=== PATIENT | female | born 2000 | race African-American/Black ===

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

== ENCOUNTER 2019-11-10 12:22 | Inpatient (IN) | payer OTHER ==
[~2019-11-10] VITALS: Ht 157.5 cm; Wt 56.8 kg
[2019-11-10 13:26] LABS: HEMATOCRIT 40.7 % (36.0-47.0); HEMOGLOBIN 13.7 g/dl (12.0-15.5); MEAN CORPUSCULAR HEMOGLOBIN 31.6 pg (27.0-33.0); MEAN CORPUSCULAR HGB CONC 33.7 g/dl (32.0-36.5); PLATELET COUNT, AUTOMATED 295 10^3/uL (150-450); RED BLOOD COUNT 4.33 10^6/uL (4.00-5.40); WHITE BLOOD COUNT 8.7 10^3/uL (4.0-10.0)
[2019-11-10 13:48] LABS: AMPHETAMINES LEVEL URINE NEGATIVE (NEGATIVE); BARBITURATES URINE NEGATIVE (NEGATIVE); BENZODIAZEPINES URINE NEGATIVE (NEGATIVE); CANNABINOIDS URINE POSITIVE (NEGATIVE); COCAINE METABOLITE URINE NEGATIVE (NEGATIVE); METHADONE URINE NEGATIVE (NEGATIVE); OPIATES URINE NEGATIVE (NEGATIVE); PHENCYCLIDINE URINE NEGATIVE (NEGATIVE)
[2019-11-10 13:51] LABS: HCG, SERUM QUALITATIVE NEGATIVE (NEGATIVE)
[2019-11-10 13:55] LABS: ACETAMINOPHEN LEVEL < 2.0 UG/ML (10.0-30.0); ALT/SGPT 25 U/L (12-78); BILIRUBIN,DIRECT 0.2 MG/DL (0.0-0.2); BILIRUBIN,TOTAL 0.5 MG/DL (0.2-1.0); BLOOD UREA NITROGEN 6 MG/DL (7-18); CARBON DIOXIDE LEVEL 26 MEQ/L (21-32); CHLORIDE LEVEL 105 MEQ/L (98-107); CREATININE FOR GFR 0.89 MG/DL (0.55-1.30); ETHYL ALCOHOL (ETHANOL) < 0.003 % (0.000-0.010); GLOMERULAR FILTRATION RATE > 60.0 (>60); GLUCOSE, FASTING 95 MG/DL (70-100); POTASSIUM SERUM 3.5 MEQ/L (3.5-5.1); SALICYLATE LEVEL < 1.7 MG/DL (5.0-30.0); SODIUM LEVEL 138 MEQ/L (136-145); TOTAL PROTEIN 8.3 GM/DL (6.4-8.2)
[2019-11-10] MEDS ORDERED: OLANZapine 10 MG TAB PO ONE (14:45)
[2019-11-10] MEDS ORDERED: LORazepam 2 MG TAB PO ONE (14:45)
[2019-11-10] MEDS ORDERED: ACETAMINOPHEN TAB 650MG DOSE (2X325MG) PO PRN (15:00)
[2019-11-10] MEDS ORDERED: MAALOX 30 ML SUSP *UDC PO PRN (15:00)
[2019-11-10] MEDS ORDERED: MOM 30ML SUSPENSION UDC PO PRN (15:00)
[2019-11-10] MEDS ORDERED: OLANZapine ORAL DISINTEGRATING TAB 5MG PO PRN (15:00)
[2019-11-11 06:23] VITALS: BP 136/91
--- NOTE | 2019-11-11 14:04 | HPEPDOC ---
[facility] Medical History & Physical Date of Admission Nov 11, 2019 Date of Service: Nov 11, 2019 History and Physical CHIEF COMPLAINT: Admitted to inpatient mental health unit for unspecified psychosis HISTORY OF PRESENT ILLNESS: 19-year-old female with reportedly no past medical history, was admitted to inpatient mental health unit yesterday for unspecified psychosis. Patient is very emotional and hysterical during my interview, crying throughout most of it. She reports feeling overwhelmed for the past few days, unable to tell me why or what brought this up. She denies any previous medical or psychiatric history, not on any medications at this time. She denies any shortness of breath, chest pain, nausea, vomiting, abdominal pain, diarrhea or constipation. 10 point review of systems negative except for above PAST MEDICAL HISTORY: 1. None. PAST SURGICAL HISTORY: 1. None. SOCIAL HISTORY: Previous smoker, currently vapes Social alcohol use. Smokes marijuana FAMILY HISTORY: Positive for heart disease ALLERGIES: Please see below. HOME MEDICATIONS: Please see below. PHYSICAL EXAMINATION: VITAL SIGNS: Please see below. GENERAL: No distress HEENT: Normocephalic, atraumatic, moist mucous membranes NECK: Supple CARDIOVASCULAR EXAMINATION: S1, S2, no murmurs RESPIRATORY EXAMINATION: Clear to auscultation, no wheezing ABDOMINAL EXAMINATION: Soft, nontender, nondistended, positive bowel sounds EXTREMITIES: Range of motion intact SKIN: No rash NEUROLOGICAL EXAMINATION: Alert and oriented 3, no focal deficits PSYCHIATRIC EXAMINATION: Calm and cooperative LABORATORY DATA: See below. MICROBIOLOGY: Please see below. ASSESSMENT: 19-year-old female with no significant past medical history admitted to inpatient mental health unit for unspecified psychosis psychosis. PLAN: 1. Unspecified psychosis. Management as per primary team Patient has no active medical issues at this time, please reconsult is needed. Vital Signs Vital Signs Date Time Temp Pulse Resp B/P (MAP) Pulse Ox O2 Delivery O2 Flow Rate FiO2 11/11/19 08:33 Room Air 11/11/19 06:23 98.6 102 18 136/91 (106) 11/10/19 15:09 99 Home Medications No Active Prescriptions or Reported Meds Allergies Coded Allergies: No Known Allergies (Unverified , 12/18/16) A-FIB/CHADSVASC A-FIB History Current/History of A-Fib/PAF?: No CHUNG NICHOLSON MD Nov 11, 2019 14:04
[2019-11-11 15:40] VITALS: BP 140/76
[2019-11-11] MEDS ORDERED: PILL CUTTER 1 EACH XX PRN (16:45)
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
[2019-11-12] MEDS: LORazepam 1 MG TAB PO PRN ×2 (00:45→22:48)
[2019-11-12] MEDS: traZODone 50 MG TAB PO PRN ×2 (00:45→22:48)
[2019-11-12 06:32] VITALS: BP 132/68
--- NOTE | 2019-11-12 12:43 | MHIPNPDOC ---
[facility] Progress Note Progress Note DATE OF SERVICE: 11/12/19 HISTORY: HISTORY OF PRESENT ILLNESS: As per ED report: " Dr. Angulo at [facility] sent patient here by EMS after seeing her today. Upon arrival with EMS, patient. Per review of Dr. Angulo's notes, patient saw Dr. Salazar (PCP) this morning as well. She revealed feeling very depressed recently, with SI & occasional plans. She reported a suicide attempt 6 months ago by hanging. At the same time she was describing sx of depression, she also relating sx associated with manic. This includes insomnia, grandiose thinking & general behavior that was described as, "Very manicky to calm". These notes also reflected concerns from patient's mother, with report that patient has been in decline x 2 years, with depressed mood, self-isolating behavior, not sleeping & has been self-medicating with CBD. Her condition has reportedly deteriorated considerably over the last 3 days, with labile mood & odd behaviors such as urinating & "soiling" furniture". Then, the note says: "Patient was able to answer some simple questions appropriately, such as why she was here & where she came from. She stated that she was here because she 'hasn't been herself for a few days'. When asked to elaborate, she said that she's been urinating & falling asleep in inapropriate places. When other historical questions were posed, such as her mental health hx, she appeared confused & provided answers that were loose and unrelated. At times, she was very slow to answer. Other times she would answer quickly, then seem to be confused and provide an answer that was completely contradictory. On direct query, patient confirmed that she's been depressed & having thoughts of suicide. At times patient smiles inappropriately & has repeatedly removed her clothing for no obvious reason." VITAL SIGNS: See below. NEW TEST RESULTS: See below CURRENT MEDICATIONS: See below. MENTAL STATUS EXAMINATION: Patient is a 19 year old female, who is alert, dressed in a hospital clothes. Speech: Is less rapid, normal tone and volume. Less circumstantial Language skills are intact Thought processes including: She is still derailed, circumstantial, tangential Thought content: Depressive thoughts, anxious, cognitive distortions Description of associations: loose Description of abnormal or psychotic thoughts: She denies TAV hallucinations today, she denies paranoid thoughts, denies bizarre delusions, denies SI/HI Judgment: Poor Insight: Poor Orientation: x 3 Recent and remote memory: Intact Attention span and concentration: less distractible than yesterday Language: adequate Fund of knowledge: average Mood: "I'm kind of overwhelmed" Affect: labile, tearful, anxious. DIAGNOSES: 1. Bipolar Disorder,mixed 2. PTSD 3. Substance abuse ASSESSMENT: She is still very labile, she is tearful, she was walking into other peoples's rooms, she was placed on a 1:1. I will increase her medications ( 5 mgs. PO BID) MANAGEMENT PLAN: Increase Abilify to 5 mgs PO BID, discontinue 1:1 observation TIME SPENT: 20 minutes. Vital Signs Vital Signs Date Time Temp Pulse Resp B/P (MAP) Pulse Ox O2 Delivery O2 Flow Rate FiO2 11/12/19 07:56 Room Air 11/12/19 06:32 98.7 82 14 132/68 (89) 11/10/19 15:09 99 Current Medications Current Medications Medications (Trade) Dose Ordered Sig/Jovani Route PRN Reason Start Time Stop Time Status Last Admin Dose Admin Acetaminophen (Tylenol Tab) 650 mg Q6HP PRN PO HEADACHE or DISCOMFORT 11/10/19 15:00 Al Hydrox/Mg Hydrox/Simethicone (Mylanta) 30 ml Q4HP PRN PO HEARTBURN/INDIGESTION 11/10/19 15:00 Aripiprazole (AbiLIFY) 2.5 mg BID PO 11/11/19 21:00 Cancel Aripiprazole (AbiLIFY) 5 mg QHS PO 11/11/19 21:00 11/11/19 20:33 Lorazepam (Ativan) 2 mg Q4HP PRN PO ANXIETY/AGITATION 11/10/19 15:00 11/12/19 00:45 Magnesium Hydroxide (Milk Of Magnesia) 30 ml DAILYPRN PRN PO CONSTIPATION 11/10/19 15:00 Olanzapine (ZyPREXA ZYDIS) 10 mg Q4HP PRN PO aa 11/10/19 15:00 Trazodone HCl (Desyrel) 50 mg QHSP PRN PO INSOMNIA 11/10/19 15:00 11/12/19 00:45 Allergies Coded Allergies: No Known Allergies (Unverified , 12/18/16) MARY JO YADAV MD Nov 12, 2019 10:20
[2019-11-12 18:16] VITALS: BP 124/86
[2019-11-13 06:26] VITALS: BP 119/71
--- NOTE | 2019-11-13 09:33 | MHIPNPDOC ---
[facility] Progress Note Progress Note DATE OF SERVICE: 11/13/19 HISTORY: Per Dr. Foster: "As per ED report: " Dr. Angulo at [facility] sent patient here by EMS after seeing her today. Upon arrival with EMS, patient. Per review of Dr. Angulo's notes, patient saw Dr. Salazar (PCP) this morning as well. She revealed feeling very depressed recently, with SI & occasional plans. She reported a suicide attempt 6 months ago by hanging. At the same time she was describing sx of depression, she also relating sx associated with manic. This includes insomnia, grandiose thinking & general behavior that was described as, "Very manicky to calm". These notes also reflected concerns from patient's mother, with report that patient has been in decline x 2 years, with depressed mood, self-isolating behavior, not sleeping & has been self-medicating with CBD. Her condition has reportedly deteriorated considerably over the last 3 days, with labile mood & odd behaviors such as urinating & "soiling" furniture". Then, the note says: "Patient was able to answer some simple questions appropriately, such as why she was here & where she came from. She stated that she was here because she 'hasn't been herself for a few days'. When asked to elaborate, she said that she's been urinating & falling asleep in inapropriate places. When other historical questions were posed, such as her mental health hx, she appeared confused & provided answers that were loose and unrelated. At times, she was very slow to answer. Other times she would answer quickly, then seem to be confused and provide an answer that was completely contradictory. On direct query, patient confirmed that she's been depressed & having thoughts of suicide. At times patient smiles inappropriately & has repeatedly removed her clothing for no obvious reason." VITAL SIGNS: See below. NEW TEST RESULTS: See below CURRENT MEDICATIONS: See below. MENTAL STATUS EXAMINATION: Patient is a 19 year old female, who is alert, dressed in a hospital clothes. Speech: Is lrage rate, normal tone and volume. Language skills are intact Thought processes including: more linear, logical Thought content: denies SI/HI Description of associations: improving Description of abnormal or psychotic thoughts: She denies TAV hallucinations today, she denies paranoid thoughts, denies bizarre delusions, denies SI/HI Judgment: improving Insight: improving Orientation: x 3 Recent and remote memory: Intact Attention span and concentration: good Language: adequate Fund of knowledge: average Mood: "better" Affect: mildly labile but mostly euthymic DIAGNOSES: 1. Bipolar Disorder,mixed 2. PTSD 3. Substance abuse ASSESSMENT: Pt seen and states that her mood is "better" as her thoughts are more clear and she feels less anxious. Her mood is only mildly labile when discuss her guilt regard "what I was thinking and saying" when she first got here and reassured pt that it isn't her fault as she is sick. States she slept well last night. Feels she is tolerating her abilify and that it's beneficial. She is attending groups and finding them helpful. She denies SI/HI, hallucinations, delusions. Pt feels safe here. MANAGEMENT PLAN: D/c planning tomorrow Abilify to 5 mgs PO BID TIME SPENT: 30 minutes. Vital Signs Vital Signs Date Time Temp Pulse Resp B/P (MAP) Pulse Ox O2 Delivery O2 Flow Rate FiO2 11/13/19 06:26 97.9 92 12 119/71 (87) Room Air 11/10/19 15:09 99 Current Medications Current Medications Medications (Trade) Dose Ordered Sig/Jovani Route PRN Reason Start Time Stop Time Status Last Admin Dose Admin Acetaminophen (Tylenol Tab) 650 mg Q6HP PRN PO HEADACHE or DISCOMFORT 11/10/19 15:00 11/13/19 08:05 Al Hydrox/Mg Hydrox/Simethicone (Mylanta) 30 ml Q4HP PRN PO HEARTBURN/INDIGESTION 11/10/19 15:00 Aripiprazole (AbiLIFY) 2.5 mg BID PO 11/11/19 21:00 Cancel Aripiprazole (AbiLIFY) 5 mg BID PO 11/12/19 09:00 Aripiprazole (AbiLIFY) 5 mg QHS PO 11/11/19 21:00 11/12/19 12:40 DC 11/11/19 20:33 Lorazepam (Ativan) 2 mg Q4HP PRN PO ANXIETY/AGITATION 11/10/19 15:00 11/12/19 22:48 Magnesium Hydroxide (Milk Of Magnesia) 30 ml DAILYPRN PRN PO CONSTIPATION 11/10/19 15:00 Olanzapine (ZyPREXA ZYDIS) 10 mg Q4HP PRN PO aa 11/10/19 15:00 Trazodone HCl (Desyrel) 50 mg QHSP PRN PO INSOMNIA 11/10/19 15:00 11/12/19 22:48 Allergies Coded Allergies: No Known Allergies (Unverified , 12/18/16) LINO MORRIS DO Nov 13, 2019 9:33 am
[2019-11-13] MEDS: LORazepam 1 MG TAB PO PRN (09:48)
[2019-11-13 18:00] VITALS: BP 135/79
[2019-11-13] MEDS: traZODone 50 MG TAB PO PRN (20:07)
[2019-11-14 06:51] VITALS: BP 113/65
[2019-11-14] MEDS ORDERED: ABIL10TA9 PO (08:34)
--- NOTE | 2019-11-14 08:34 | MHDSPDOC ---
[facility] Discharge Summary Discharge Summary DATE OF ADMISSION: Nov 10, 2019 at 2:54 pm DATE OF DISCHARGE: Nov 14, 2019 DISCHARGE DIAGNOSES: 1. Bipolar Disorder,mixed 2. PTSD 3. Substance abuse REASON FOR ADMISSION: Per Dr. Foster: "As per ED report: " Dr. Angulo at [facility] sent patient here by EMS after seeing her today. Upon arrival with EMS, patient. Per review of Dr. Angulo's notes, patient saw Dr. Salazar (PCP) this morning as well. She revealed feeling very depressed recently, with SI & occasional plans. She reported a suicide attempt 6 months ago by hanging. At the same time she was describing sx of depression, she also relating sx associated with manic. This includes insomnia, grandiose thinking & general behavior that was described as, "Very manicky to calm". These notes also reflected concerns from patient's mother, with report that patient has been in decline x 2 years, with depressed mood, self-isolating behavior, not sleeping & has been self-medicating with CBD. Her condition has reportedly deteriorated considerably over the last 3 days, with labile mood & odd behaviors such as urinating & "soiling" furniture". Then, the note says: "Patient was able to answer some simple questions appropriately, such as why she was here & where she came from. She stated that she was here because she 'hasn't been herself for a few days'. When asked to elaborate, she said that she's been urinating & falling asleep in inapropriate places. When other historical ques tions were posed, such as her mental health hx, she appeared confused & provided answers that were loose and unrelated. At times, she was very slow to answer. Other times she would answer quickly, then seem to be confused and provide an answer that was completely contradictory. On direct query, patient confirmed that she's been depressed & having thoughts of suicide. At times patient smiles inappropriately & has repeatedly removed her clothing for no obvious reason." CONSULTANTS INVOLVED: none TREATMENT AND PROGRESS ON THE UNIT :[facility], seen for psychiatric assessment and started on abilfy 5mg daily for bipolar d/o that she tolerated well and appeared beneficial so she was given abilify maintena 400mg im on day of d/c that she tolerated well and felt was beneficial. Her oral abilify was d/c. She was provided trazodone 50mg qhs prn insomnia. Pt found her medications beneficial and tolerated them well. She attended groups daily during her stay. Her symptoms of barrett improved with treatment to now having a euthymic, appropriate mood with linear and logical thoughts. On day of discharge she denied depression, barrett, anxiety, insomnia, SI/HI, hallucinations, delusions. She was discharged home with follow-up at the [facility]. She felt safe for discharge. DISCHARGE ASSESSMENT: Pt seen and states that her mood is "good" and that she's looking forward to going home today. States she's tolerating her abilify well and that it is beneficial to her thoughts and mood as she is able to think more clearly and her mood is more stable. States she slept well last night. She is attending groups and finding them helpful. She denies depression, barrett, anxiety, insomnia, SI/HI, hallucinations, delusions. Pt feels safe to d/c home today MENTAL STATUS EXAMINATION ON DISCHARGE: Patient is a 19 year old female, who is alert, dressed in a hospital clothes. Speech: Is reg rate, normal tone and volume. Language skills are intact Thought processes including: linear, logical Thought content: denies SI/HI Description of associations: appropriate Description of abnormal or psychotic thoughts: She denies TAV hallucinations today, she denies paranoid thoughts, denies bizarre delusions, denies SI/HI Judgment: good Insight: good Orientation: x 3 Recent and remote memory: Intact Attention span and concentration: good Language: adequate Fund of knowledge: average Mood: "good" Affect: congruent, euthymic MEDICATIONS ON DISCHARGE: Abilify maintena 400mg im q4wks PLAN/FOLLOWUP ARRANGEMENTS: D/c home with follow-up at the [facility]. The amount of time spent in the coordination of care for this patient was approximately 30 minutes. Vital Signs/I&Os Vital Signs Date Time Temp Pulse Resp B/P (MAP) Pulse Ox O2 Delivery O2 Flow Rate FiO2 11/14/19 07:04 99.4 11/14/19 06:51 84 12 113/65 (81) 11/13/19 06:26 Room Air 11/10/19 15:09 99 Medications Scheduled Aripiprazole (Abilify Maintena) 400 Mg Suser.syr, 400 MG IM Q4WKS for bipolar d/o, #400 Allergies Coded Allergies: No Known Allergies (Unverified , 12/18/16) LINO MORRIS DO Nov 14, 2019 8:34 am
[2019-11-14] MEDS ORDERED: ABIL1INJ2 IM (09:08)
[2019-11-14] MEDS ORDERED: ARIPiprazole MONOHYDRATE 400 MG INJ (ABILIFY)(J0401) IM ONE (11:00)
== END 2019-11-14 10:56 | disposition home or self-care (01) | DRG 885 ==
LOC: M ED 12:22 → M ED INP 14:54 → M PSY 16:43
PROVIDERS: ADMIT Psychiatry & Neurology Psychiatry; ATTEND Psychiatry & Neurology Psychiatry
DX: F31.60 Bipolar disorder, current episode mixed, unspecified (principal); F43.10 Post-traumatic stress disorder, unspecified

== ENCOUNTER 2020-08-20 00:17 | Inpatient (IN) | payer OTHER ==
[~2020-08-20] VITALS: Ht 157.5 cm; Wt 64.3 kg
[~2020-08-20 00:17] MED LIST: ABIL10TA9 PO; ABIL1INJ2 IM
[2020-08-20] MEDS ORDERED: NS 1,000 ML IV ONE ×5 (00:30→14:00)
[2020-08-20 01:14] LABS: VENOUS PH 7.399 UNITS (7.330-7.430)
[2020-08-20 01:15] LABS: VENOUS BASE EXCESS -0.7 (-2.0-2.0); VENOUS O2 SATURATION 94.4 % (60.0-80.0); VENOUS PARTIAL PRESSURE CO2 39.7 mmHg (38.0-50.0); VENOUS PARTIAL PRESSURE O2 69.4 mmHg (30.0-50.0); VENOUS STANDARD HCO3 23.8 MEQ/L; VENOUS TOTAL CO2 25.2 MEQ/L (24.0-28.0)
[2020-08-20] MEDS ORDERED: OLANZapine ORAL DISINTEGRATING TAB 5MG PO ONE (01:15)
[2020-08-20 01:17] LABS: BASO # 0.1 10^3/uL (0.0-0.2); BASO % 0.4 % (0.0-1.0); EOS % 0.1 % (0.0-3.0); HEMATOCRIT 37.8 % (36.0-47.0); HEMOGLOBIN 12.4 g/dl (12.0-15.5); LYMPH # 1.1 10^3/uL (1.5-5.0); LYMPH % 8.7 % (24.0-44.0); MEAN CORPUSCULAR HEMOGLOBIN 30.4 pg (27.0-33.0); MEAN CORPUSCULAR HGB CONC 32.8 g/dl (32.0-36.5); MEAN CORPUSCULAR VOLUME 92.6 fl (80.0-96.0); MONO % 7.6 % (0.0-5.0); NEUTROPHILS # 10.6 10^3/uL (1.5-8.5); NEUTROPHILS % 82.6 % (36.0-66.0); PLATELET COUNT, AUTOMATED 250 10^3/uL (150-450); RED BLOOD COUNT 4.08 10^6/uL (4.00-5.40); WHITE BLOOD COUNT 12.8 10^3/uL (4.0-10.0)
[2020-08-20 01:39] LABS: HCG, SERUM QUALITATIVE NEGATIVE (NEGATIVE)
[2020-08-20 01:53] LABS: ACETAMINOPHEN LEVEL < 2.0 UG/ML (10.0-30.0); ALBUMIN 4.1 GM/DL (3.2-5.2); ALT/SGPT 37 U/L (12-78); BILIRUBIN,DIRECT 0.2 MG/DL (0.0-0.2); BILIRUBIN,TOTAL 0.6 MG/DL (0.2-1.0); BLOOD UREA NITROGEN 6 MG/DL (7-18); CALCIUM LEVEL 9.2 MG/DL (8.5-10.1); CARBON DIOXIDE LEVEL 27 MEQ/L (21-32); CHLORIDE LEVEL 103 MEQ/L (98-107); CK-MB VALUE MASS 4.6 NG/ML (<3.6); CPK CREATINE PHOSPHOKINASE 819 U/L (26-192); CREATININE FOR GFR 1.06 MG/DL (0.55-1.30); ETHYL ALCOHOL (ETHANOL) < 0.003 % (0.000-0.010); GLOMERULAR FILTRATION RATE > 60.0 (>60); GLUCOSE, FASTING 92 MG/DL (70-100); MB/CK RELATIVE INDEX 0.56 (< OR =4); POTASSIUM SERUM 2.8 MEQ/L (3.5-5.1); SALICYLATE LEVEL < 1.7 MG/DL (5.0-30.0); SODIUM LEVEL 135 MEQ/L (136-145); THYROID STIMULATING HORMONE 0.546 uIU/ML (0.358-3.740); TOTAL PROTEIN 7.9 GM/DL (6.4-8.2); TROPONIN I < 0.02 NG/ML (< 0.10)
[2020-08-20 02:05] LABS: OSMOLALITY SERUM 287 MOSM/KG (275-295)
[2020-08-20] MEDS ORDERED: POTASSIUM CHLORIDE 10 MEQ SR TABLET PO ONE (02:15)
--- NOTE | 2020-08-20 02:23 | REPVR ---
PROCEDURE INFORMATION: Exam: XR Chest, 1 View Exam date and time: 08/20/2020 2:02 AM Age: 19 years old Clinical indication: Altered mental status TECHNIQUE: Imaging protocol: XR of the chest Views: 1 view. COMPARISON: CR CHEST 2 VIEW 01/09/2014 8:03 PM (The report from this study was not available for review at the time of this interpretation.) FINDINGS: Lungs: Unremarkable. No consolidation. No pulmonary edema. Pleural space: Unremarkable. No pleural effusion or pneumothorax is identified. Heart/Mediastinum: Unremarkable. No cardiomegaly. Bones/joints: Unremarkable. IMPRESSION: No acute findings. Electronically signed by: Jc Corley On 08/20/2020 02:24:05 AM
[2020-08-20] MEDS ORDERED: LORazepam 2 MG/ML VIAL As Ordered ONE ×3 (03:09→18:42)
[2020-08-20] MEDS ORDERED: HALOPERIDOL 5MG/ML VIAL (J1630 PER 1) IM ONE (03:15)
[2020-08-20] MEDS ORDERED: diphenhydrAMINE 50MG/ML VIAL (J1200) IM ONE (03:15)
[2020-08-20] MEDS ORDERED: LORazepam 2 MG/ML VIAL IM ONE (03:15)
[2020-08-20 04:49] LABS: AMPHETAMINES LEVEL URINE NEGATIVE (NEGATIVE); BARBITURATES URINE NEGATIVE (NEGATIVE); BENZODIAZEPINES URINE POSITIVE (NEGATIVE); CANNABINOIDS URINE POSITIVE (NEGATIVE); COCAINE METABOLITE URINE NEGATIVE (NEGATIVE); METHADONE URINE NEGATIVE (NEGATIVE); OPIATES URINE NEGATIVE (NEGATIVE); PHENCYCLIDINE URINE NEGATIVE (NEGATIVE)
[2020-08-20 08:46] LABS: BLOOD UREA NITROGEN 5 MG/DL (7-18); CALCIUM LEVEL 8.7 MG/DL (8.5-10.1); CARBON DIOXIDE LEVEL 24 MEQ/L (21-32); CHLORIDE LEVEL 107 MEQ/L (98-107); CREATININE FOR GFR 0.81 MG/DL (0.55-1.30); GLOMERULAR FILTRATION RATE > 60.0 (>60); GLUCOSE, FASTING 88 MG/DL (70-100); POTASSIUM SERUM 3.5 MEQ/L (3.5-5.1); SODIUM LEVEL 139 MEQ/L (136-145)
[2020-08-20] MEDS ORDERED: LORazepam 2 MG/ML VIAL IV STA ×2 (09:23→11:53)
[2020-08-20 10:02] LABS: CK-MB VALUE MASS 4.9 NG/ML (<3.6); CPK CREATINE PHOSPHOKINASE 973 U/L (26-192); TROPONIN I < 0.02 NG/ML (< 0.10)
[2020-08-20 13:20] LABS: CK-MB VALUE MASS 5.3 NG/ML (<3.6); CPK CREATINE PHOSPHOKINASE 1211 U/L (26-192); MB/CK RELATIVE INDEX 0.44 (< OR =4); TROPONIN I < 0.02 NG/ML (< 0.10)
[2020-08-20] MEDS ORDERED: diphenhydrAMINE 50MG/ML VIAL (J1200) IM PRN (14:00)
[2020-08-20] MEDS ORDERED: HALOPERIDOL 5MG/ML VIAL (J1630 PER 1) IM PRN (14:00)
[2020-08-20] MEDS ORDERED: ARIP1TAB PO (14:10)
[2020-08-20 14:35] LABS: RSV AMPLIFICATION NEGATIVE (NEGATIVE)
[2020-08-20] MEDS ORDERED: DEXTROSE 50% 50 ML SYRINGE IV PRN (15:30)
[2020-08-20] MEDS ORDERED: GLUCOSE 4GM CHEW TABLET PO PRN (15:30)
[2020-08-20] MEDS ORDERED: HALOPERIDOL 5MG/ML VIAL (J1630 PER 1) IV ONE (15:30)
[2020-08-20] MEDS ORDERED: GLUCAGON INJ 1MG VIAL SC PRN (15:30)
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
[2020-08-20 17:27] VITALS: BP 128/85
[2020-08-20] MEDS ORDERED: flumazeniL 0.5 MG/5 ML VIAL IV PRN (17:30)
[2020-08-20] MEDS ORDERED: LORazepam 2 MG/ML VIAL IV PRN (17:30)
--- NOTE | 2020-08-20 17:35 | ECGEPIP ---
[facility] - ED Test Date: 2020-08-20 Pat Name: MAEGAN PEREZ Department: Room: - Gender: Female [employer]: hannah : 2000 Requested By: XIMENA Dooley Order Number: [id number] Reading MD: Kelly Brambila Measurements Intervals [place] Rate: 94 P: 67 KS: 132 QRS: 55 QRSD: 85 T: -3 QT: 358 QTc: 448 Interpretive Statements SINUS RHYTHM NONSPECIFIC ST & T-WAVE ABNORMALITY No prior Electronically Signed on 08-20-2020 17:34:53 EST by Kelly Brambila
[2020-08-20] MEDS: NS 1,000 ML IV SCH ×2 (17:48→20:06)
[2020-08-20] MEDS: diazePAM 5MG TABLET PO PRN ×2 (18:18→21:49)
--- NOTE | 2020-08-20 20:34 | MHIPNPDOC ---
[facility] Progress Note Progress Note DATE OF SERVICE: 08/20/20 HISTORY: 19 year old female who was admitted to the Medical floor for severe rhabdomyolysis after being combative at the ED. She apparently attempted to run away from the emergency, had to be restrained, received, Haldol, Ativan and Benadryl. By the time this technical writer and editor was consulted, she had already received 5 mgs of Haldol, several doses of Ativan plus Zyprexa Zydis. Nothing was helping to calm her down. This afternoon Dr. Lopez called this technical writer and editor for a consult on this patient. VITAL SIGNS: See below. NEW TEST RESULTS: See below CURRENT MEDICATIONS: See below. MENTAL STATUS EXAMINATION: Patient is a 19-year old female, who is alert, dressed in hospital gown, disheveled.. Speech: Is tangential, circumstantial, clear, spontaneous, normal in tone and volume, not rapid at this time. Disorganized Thought processes including: Disorganized. Derailed Thought content: She exhibits bizarre delusions, paranoid thoughts Abstract reasoning, and computation: not assessed at this time, patient is psychotic. Description of associations: loose. Description of abnormal or psychotic thoughts: bizarere and paranoid behavior, paranoid delusions. Judgment: poor Insight: poor. Orientation: not oriented to time and place at this time Recent and remote memory: unable to assess at this time, patient is psychotic. Attention span and concentration: poor. Fund of knowledge: unable to assess, patient is psychotic Mood: labile. Affect: congruent with mood. DIAGNOSES: 1. Unspecified psychotic disorder 2. Substance induced psychotic disorder 3. Bipolar disorder by history ASSESSMENT: As I entered the room and started talking to her she asked me if I was Dr. Chowdary. I said I wasn't Dr. Chowdary and I introduced myself. almost immediately she got up from bed and kept looking at the door. I asked her twice to please go back to bed but she said she preferred to be like that, standing up. She started talking to me and she didn't make any sense. She told me she was taking Abilify and started complaining about medication side effects, saying this medication had made her develop OCD symptoms and to get worse. Then she started saying that she was taking fragments of the tablet and immediately she switched to a different topic where she was talking about some friends taking small doses of a medication, saying that they were using drugs, mentioned marijuana and she said that she didn't understand why this was bad for her. She kept on talking in this nonsensical way. She is psychotic and probably will attempt to run away from her room. She, unfortunately presents with Rhabdomyolysis and elevated CK because she needs antipsychotic medication. This technical writer and editor spoke with Dr. Lopez and she suggested to have her sedated using benzodiazepines since at this time is not safe to use antipsychotic medication ( it would make her CK more elevated). The patient has a urine tox positive for benzodiazepines and marijuana. She has ah/o drug abuse and this is probably the result of one of those drugs ( nathen?). Once her CK starts to decrease, she will benefit from Zyprexa Zydis 5 mgs PO TID and once medically stable, she will be re evaluated to assess possible tansfe to [facility]: Please read above TIME SPENT: 15 minutes. Vital Signs Vital Signs Date Time Temp Pulse Resp B/P (MAP) Pulse Ox O2 Delivery O2 Flow Rate FiO2 08/20/20 17:27 98.7 96 17 128/85 (99) Room Air 08/20/20 15:17 100 Laboratory Data 24H Labs Laboratory Tests 2 08/20/20 01:06: Immature Granulocyte % (Auto) 0.6, Neutrophils (%) (Auto) 82.6H, Lymphocytes (%) (Auto) 8.7L, Monocytes (%) (Auto) 7.6H, Eosinophils (%) (Auto) 0.1, Basophils (%) (Auto) 0.4, Neutrophils # (Auto) 10.6H, Lymphocytes # (Auto) 1.1L, Monocytes # (Auto) 1.0H, Eosinophils # (Auto) 0.0, Basophils # (Auto) 0.1, Nucleated Red Blood Cells % (auto) 0.0, Blood Gas Bicarbonate Standard 23.8, Venous Blood pH 7.399, Venous Blood Partial Pressure CO2 39.7, Venous Blood Partial Pressure O2 69.4H, Venous Blood Total Carbon Dioxide 25.2, Venous Blood HCO3 24.0, Venous Blood Oxygen Saturation 94.4H, Venous Blood Base Excess -0.7, Anion Gap 5L, Glomerular Filtration Rate > 60.0, Osmolality 287, Lactic Acid Level 1.9, Calcium Level 9.2, Total Bilirubin 0.6, Direct Bilirubin 0.2, Aspartate Amino Transf (AST/SGOT) 40H, Alanine Aminotransferase (ALT/SGPT) 37, Alkaline Phosphatase 61, Total Creatine Kinase 819H, Creatine Kinase MB 4.6H, Creatine Kinase MB Relative Index 0.56, Troponin I < 0.02, Total Protein 7.9, Albumin 4.1, Albumin/Globulin Ratio 1.1L, Thyroid Stimulating Hormone (TSH) 0.546, Human Chorionic Gonadotropin, Qual NEGATIVE, Salicylates Level < 1.7L, Acetaminophen Level < 2.0L, Ethyl Alcohol Level < 0.003 08/20/20 04:13: Urine Color YELLOW, Urine Appearance CLEAR, Urine pH 7.0, Urine Specific [place] 1.003, Urine Protein NEGATIVE, Urine Glucose (UA) NEGATIVE, Urine Ketones TRACEH, Urine Blood NEGATIVE, Urine Nitrite NEGATIVE, Urine Bilirubin NEGATIVE, Urine Urobilinogen 0.2, Urine Leukocyte Esterase NEGATIVE, Urine WBC (Auto) 1, Urine RBC (Auto) 0, Urine Hyaline Casts (Auto) 0, Urine Bacteria (Auto) NEGATIVE, Urine Squamous Epithelial Cells 0, Urine Sperm (Auto) , Urine Opiates Screen NEGATIVE, Urine Methadone Screen NEGATIVE, Urine Barbiturates Screen NEGATIVE, Urine Phencyclidine Screen NEGATIVE, Urine Amphetamines Screen NEGATIVE, Urine Benzodiazepines Screen POSITIVEH, Urine Cocaine Metabolite Screen NEGATIVE, Urine Cannabinoids Screen POSITIVEH 08/20/20 07:44: Anion Gap 8, Glomerular Filtration Rate > 60.0, Calcium Level 8.7 08/20/20 08:45: Total Creatine Kinase 973H, Creatine Kinase MB 4.9H, Creatine Kinase MB Relative Index 0.50, Troponin I < 0.02 08/20/20 12:22: Total Creatine Kinase 1211H, Creatine Kinase MB 5.3H, Creatine Kinase MB Relative Index 0.44, Troponin I < 0.02 08/20/20 13:31: Coronavirus (COVID-19)(PCR) NEGATIVE, Influenza Type A (RT-PCR) NEGATIVE, Influenza Type B (RT-PCR) NEGATIVE, Respiratory Syncytial Virus (PCR) NEGATIVE CBC/BMP Laboratory Tests 08/20/20 01:06 08/20/20 07:44 Current Medications Current Medications Medications (Trade) Dose Ordered Sig/Jovani Route PRN Reason Start Time Stop Time Status Last Admin Dose Admin Dextrose (Dextrose 50%) 25 ml ASDIRECTED PRN IV SEE LABEL COMMENTS 08/20/20 15:30 Diazepam (Valium) 5 mg Q6HP PRN PO restlessness 08/20/20 17:30 Diphenhydramine HCl (Benadryl) 50 mg Q6HP PRN IM AGITATION 08/20/20 14:00 08/20/20 17:28 DC Flumazenil (Romazicon) 0.1 mg Q3MP PRN IV RR<12 08/20/20 17:30 Glucagon (Glucagon) 1 mg ASDIRECTED PRN SC SEE LABEL COMMENTS 08/20/20 15:30 Glucose (Glucose) 16 GM ASDIRECTED PRN PO SEE LABEL COMMENTS 08/20/20 15:30 Haloperidol (Haldol) 5 mg Q6HP PRN IM AGITATION 08/20/20 14:00 08/20/20 17:28 DC Home Med (Med Rec Complete!) ASDIRECTED XX 08/20/20 14:15 08/20/20 14:13 DC Lorazepam (Ativan) 1 mg STAT STAT IV 08/20/20 09:23 08/20/20 09:27 DC 08/20/20 09:28 Lorazepam (Ativan) 2 mg Q4HP PRN IV AGITATION 08/20/20 17:30 08/20/20 18:46 Lorazepam (Ativan) 2 mg STAT STAT IV 08/20/20 11:53 08/20/20 11:54 DC 08/20/20 12:04 Sodium Chloride 1,000 ml @ 200 mls/hr Q5H IV 08/20/20 15:00 08/20/20 17:48 Allergies Coded Allergies: No Known Allergies (Unverified , 12/18/16) MARY JO YADAV MD Aug 20, 2020 20:34
[2020-08-20 22:00] VITALS: BP 116/64
[2020-08-21] MEDS: NS 1,000 ML IV SCH ×7 (01:00→23:30)
[2020-08-21 06:00] VITALS: BP 134/87
[2020-08-21] MEDS ORDERED: diazePAM 10MG/2ML SYRINGE (J3360 PER 5MG) IV ONE (07:45)
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
[2020-08-21 10:16] LABS: MEAN CORPUSCULAR HEMOGLOBIN 31.3 pg (27.0-33.0); MEAN CORPUSCULAR HGB CONC 32.4 g/dl (32.0-36.5); MEAN CORPUSCULAR VOLUME 96.9 fl (80.0-96.0); PLATELET COUNT, AUTOMATED 205 10^3/uL (150-450); RED BLOOD COUNT 3.51 10^6/uL (4.00-5.40); WHITE BLOOD COUNT 8.2 10^3/uL (4.0-10.0)
[2020-08-21] MEDS: diazePAM 5MG TABLET PO PRN ×2 (10:24→17:31)
[2020-08-21 10:56] LABS: BLOOD UREA NITROGEN 5 MG/DL (7-18); CARBON DIOXIDE LEVEL 23 MEQ/L (21-32); CHLORIDE LEVEL 115 MEQ/L (98-107); CPK CREATINE PHOSPHOKINASE 1724 U/L (26-192); CREATININE FOR GFR 0.71 MG/DL (0.55-1.30); GLOMERULAR FILTRATION RATE > 60.0 (>60); GLUCOSE, FASTING 87 MG/DL (70-100); POTASSIUM SERUM 3.4 MEQ/L (3.5-5.1); SODIUM LEVEL 144 MEQ/L (136-145)
[2020-08-21] MEDS ORDERED: POTASSIUM CHLORIDE 10 MEQ SR TABLET PO ONE (11:15)
[2020-08-21 14:00] VITALS: BP 134/88
[2020-08-21] MEDS ORDERED: LORazepam 2 MG/ML VIAL IM STA (20:53)
[2020-08-21] MEDS ORDERED: LORazepam 2 MG TAB PO PRN (21:15)
[2020-08-21 22:00] VITALS: BP 134/87
[2020-08-22] MEDS: diazePAM 5MG TABLET PO PRN ×3 (02:26→20:51)
[2020-08-22] MEDS: NS 1,000 ML IV SCH ×6 (04:30→19:30)
[2020-08-22 06:00] VITALS: BP 133/86
[2020-08-22 07:11] LABS: BLOOD UREA NITROGEN 2 MG/DL (7-18); CARBON DIOXIDE LEVEL 25 MEQ/L (21-32); CHLORIDE LEVEL 112 MEQ/L (98-107); GLOMERULAR FILTRATION RATE > 60.0 (>60); GLUCOSE, FASTING 91 MG/DL (70-100); POTASSIUM SERUM 3.3 MEQ/L (3.5-5.1); SODIUM LEVEL 143 MEQ/L (136-145)
[2020-08-22 07:12] LABS: CPK CREATINE PHOSPHOKINASE 1241 U/L (26-192)
[2020-08-22] MEDS ORDERED: POTASSIUM CHLORIDE 10 MEQ SR TABLET PO ONE (07:45)
[2020-08-22] MEDS ORDERED: diazePAM 5MG TABLET PO ONE (10:15)
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
[2020-08-22] MEDS ORDERED: LORazepam 2 MG/ML VIAL As Ordered ONE (12:38)
[2020-08-22] MEDS: LORazepam 2 MG/ML VIAL IV PRN (12:41)
[2020-08-22 22:00] VITALS: BP 140/96
[2020-08-23] MEDS: NS 1,000 ML IV SCH ×7 (00:30→22:03)
[2020-08-23] MEDS: LORazepam 2 MG/ML VIAL IV PRN (03:58)
[2020-08-23] MEDS: diazePAM 5MG TABLET PO PRN (04:53)
[2020-08-23 06:00] VITALS: BP 140/95
[2020-08-23] MEDS ORDERED: diazePAM 10MG/2ML SYRINGE (J3360 PER 5MG) IV PRN (07:45)
[2020-08-23] MEDS ORDERED: diazePAM 5MG TABLET PO ONE (08:00)
[2020-08-23] MEDS ORDERED: ARIPiprazole 2 MG TAB PO ONE (09:00)
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
[2020-08-23 14:00] VITALS: BP 143/93
--- NOTE | 2020-08-23 18:58 | MHIPNPDOC ---
[facility] Progress Note Progress Note DATE OF SERVICE: 08/23/20 HISTORY: 19 year old female who was admitted to the Medical floor for severe rhabdomyolysis after being combative at the ED. She apparently attempted to run away from the emergency, had to be restrained, received, Haldol, Ativan and Benadryl. By the time this comic writer was consulted, she had already received 5 mgs of Haldol, several doses of Ativan plus Zyprexa Zydis. Nothing was helping to calm her down. This afternoon Dr. Lopez called this comic writer for a consult on this patient. VITAL SIGNS: See below. NEW TEST RESULTS: See below CURRENT MEDICATIONS: See below. MENTAL STATUS EXAMINATION: Patient is a 19-year old female, who is alert, dressed in hospital gown, disheveled.. Speech: Disorganized, circumstantial and tangential. Speech is normal in r/t/v Thought processes including: Disorganized, psychotic. Thought content: She is delusional, she says she gets super rey when they draw blood from her, she has bizarre thoughts regarding medications Abstract reasoning, and computation: not assessed at this time, patient is psychotic. Description of associations: loose. Description of abnormal or psychotic thoughts: bizarre delusions, she doesn't seem to be responding to internal stimuli at this time but she is probably hallucinating Judgment: poor Insight: poor. Orientation: not oriented to time and place at this time Recent and remote memory: She is not able to remember that she talked to me or the conversation that I had with her when I went to see her. Attention span and concentration: poor. Fund of knowledge: unable to assess, patient is psychotic Mood: labile, irritable Affect: congruent with mood. DIAGNOSES: 1. Unspecified psychotic disorder 2. Substance induced psychotic disorder 3. Bipolar disorder by history ASSESSMENT: The patient is psychotic but unfortunately at this time she is not able to make decisions regarding her health because of that. She told me she wanted her psychiatric medications but when I told her I only could give her medications if she accepted her IV fluids and allowed the lab to draw blood from her. At that point she told she didn't mind allowing the blood to be drawn because "that makes me have super rey, makes me strong, I gave them a lot of blood yesterday". Regarding medications she says she wants medical marijuana and when I told her I can't prescribe her that, she said I could probably refer her and when I said I couldn't do that, got upset with me. If the patient would be medically stable I would transfer to the Inpatient Mental Health Unit but she is not medically stable at this time and unfortunately she can't receive antipsychotic medications because these medicines can cause elevated CK levels and rhabdomyolysis. This comic writer is aware that she has not allowed the staff to draw blood from her in approximately 48 hours and she hasn't allowed IV fluids either. Without IV fluids her CK levels are probably high. If she would allow the staff to have blood drawn for CK levels and a new chemistry and if those levles would fal within the normal range, I would be able to transfer her to [facility] but if those levels are abnormal, I can't transfer her or give her antipsychotic medications. I have discussed the case with Dr. Yaneli Lopez and Mrs. Ángela Gonzales, Powerhouse Operator of the Department of Psychiatry. MANAGEMENT PLAN: Please read above TIME SPENT: 15 minutes. Vital Signs Vital Signs Date Time Temp Pulse Resp B/P (MAP) Pulse Ox O2 Delivery O2 Flow Rate FiO2 08/23/20 14:00 98.4 95 16 143/93 (110) 97 Room Air Current Medications Current Medications Medications (Trade) Dose Ordered Sig/Jovani Route PRN Reason Start Time Stop Time Status Last Admin Dose Admin Dextrose (Dextrose 50%) 25 ml ASDIRECTED PRN IV SEE LABEL COMMENTS 08/20/20 15:30 Diazepam (Valium) 5 mg Q6HP PRN IV anxiety 08/23/20 07:45 Diazepam (Valium) 5 mg Q6HP PRN PO restlessness 08/20/20 17:30 08/23/20 07:55 DC 08/23/20 04:53 Diphenhydramine HCl (Benadryl) 50 mg Q6HP PRN IM AGITATION 08/20/20 14:00 08/20/20 17:28 DC Flumazenil (Romazicon) 0.1 mg Q3MP PRN IV RR<12 08/20/20 17:30 Glucagon (Glucagon) 1 mg ASDIRECTED PRN SC SEE LABEL COMMENTS 08/20/20 15:30 Glucose (Glucose) 16 GM ASDIRECTED PRN PO SEE LABEL COMMENTS 08/20/20 15:30 Haloperidol (Haldol) 5 mg Q6HP PRN IM AGITATION 08/20/20 14:00 08/20/20 17:28 DC Home Med (Med Rec Complete!) ASDIRECTED XX 08/20/20 14:15 08/20/20 14:13 DC Lorazepam (Ativan) 1 mg STAT STAT IV 08/20/20 09:23 08/20/20 09:27 DC 08/20/20 09:28 Lorazepam (Ativan) 2 mg Q4HP PRN IV AGITATION 08/20/20 17:30 08/21/20 21:13 DC 08/20/20 18:46 Lorazepam (Ativan) 2 mg Q4HP PRN IV AGITATION 08/22/20 10:45 08/23/20 07:55 DC 08/23/20 03:58 Lorazepam (Ativan) 2 mg Q4HP PRN PO ANXIETY/AGITATION 08/21/20 21:15 08/22/20 10:38 DC 08/21/20 21:20 Lorazepam (Ativan) 2 mg STAT STAT IM 08/21/20 20:53 08/21/20 20:54 Cancel Lorazepam (Ativan) 2 mg STAT STAT IV 08/20/20 11:53 08/20/20 11:54 DC 08/20/20 12:04 Sodium Chloride 1,000 ml @ 200 mls/hr Q5H IV 08/20/20 15:00 08/21/20 11:32 DC 08/20/20 20:06 Sodium Chloride 1,000 ml @ 200 mls/hr Q5H IV 08/21/20 13:30 08/23/20 04:03 Sodium Chloride 1,000 ml @ 1,000 mls/hr Q1H IV 08/21/20 11:15 08/21/20 13:14 DC 08/21/20 15:45 Sodium Chloride 1,000 ml @ 1,000 mls/hr Q1H IV 08/22/20 11:00 08/22/20 12:59 DC 08/22/20 14:58 Sodium Chloride 1,000 ml @ 1,000 mls/hr Q1H IV 08/23/20 08:00 08/23/20 10:59 DC Allergies Coded Allergies: No Known Allergies (Unverified , 12/18/16) MARY JO YADAV MD Aug 23, 2020 18:58
[2020-08-23] MEDS ORDERED: NS 1,000 ML IV ONE ×2 (19:00→21:00)
[2020-08-23] MEDS ORDERED: NS 1,000 ML IV SCH (19:00)
[2020-08-23 19:48] LABS: BLOOD UREA NITROGEN 5 MG/DL (7-18); CALCIUM LEVEL 8.6 MG/DL (8.5-10.1); CARBON DIOXIDE LEVEL 26 MEQ/L (21-32); CHLORIDE LEVEL 109 MEQ/L (98-107); CREATININE FOR GFR 0.74 MG/DL (0.55-1.30); GLOMERULAR FILTRATION RATE > 60.0 (>60); GLUCOSE, FASTING 95 MG/DL (70-100); POTASSIUM SERUM 3.5 MEQ/L (3.5-5.1); SODIUM LEVEL 141 MEQ/L (136-145)
[2020-08-23 22:00] VITALS: BP_SYST 117; BP_SYST 137; BP_DIAS 57; BP_DIAS 97
[2020-08-24] VITALS (12 sets, daily range): BP systolic 102–156; BP diastolic 62–102; O2SAT 97–98
[2020-08-24] MEDS ORDERED: HALOPERIDOL 5MG/ML VIAL (J1630 PER 1) IV ONE (02:00)
[2020-08-24] MEDS ORDERED: diazePAM 5MG TABLET PO PRN (02:15)
[2020-08-24] MEDS ORDERED: HALOPERIDOL 5MG/ML VIAL (J1630 PER 1) IM STA (02:27)
[2020-08-24] MEDS ORDERED: LORazepam 2 MG/ML VIAL IM STA (02:34)
[2020-08-24] MEDS: NS 1,000 ML IV SCH ×2 (02:52→08:01)
[2020-08-24 08:15] LABS: BLOOD UREA NITROGEN 3 MG/DL (7-18); CALCIUM LEVEL 8.1 MG/DL (8.5-10.1); CARBON DIOXIDE LEVEL 22 MEQ/L (21-32); CHLORIDE LEVEL 111 MEQ/L (98-107); CPK CREATINE PHOSPHOKINASE 413 U/L (26-192); CREATININE FOR GFR 0.66 MG/DL (0.55-1.30); GLOMERULAR FILTRATION RATE > 60.0 (>60); GLUCOSE, FASTING 81 MG/DL (70-100); SODIUM LEVEL 138 MEQ/L (136-145)
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
== END 2020-08-24 11:55 | DRG 558 ==
LOC: M ED 00:17 → M ED INP 13:47 → ENRESERV 15:51 → M MSPAV 16:59
PROVIDERS: ADMIT General Practice; ATTEND General Practice
DX: M62.82 Rhabdomyolysis (principal); F31.5 Bipolar disorder, current episode depressed, severe, with psychotic features; F43.10 Post-traumatic stress disorder, unspecified; F17.290 Nicotine dependence, other tobacco product, uncomplicated; F12.90 Cannabis use, unspecified, uncomplicated; E87.6 Hypokalemia

== ENCOUNTER 2020-08-24 11:23 | Inpatient (IN) | payer OTHER ==
[~2020-08-24] VITALS: Ht 157.5 cm; Wt 62.4 kg
[~2020-08-24 11:23] MED LIST changes: +ARIP1TAB PO
[2020-08-24] MEDS ORDERED: ACETAMINOPHEN TAB 650MG DOSE (2X325MG) PO PRN (11:45)
[2020-08-24] MEDS ORDERED: MAALOX 30 ML SUSP *UDC PO PRN (11:45)
[2020-08-24] MEDS ORDERED: MOM 30ML SUSPENSION UDC PO PRN (11:45)
[2020-08-24] MEDS ORDERED: risperiDONE 1 MG TAB PO ONE (15:00)
[2020-08-24] MEDS: OLANZapine ORAL DISINTEGRATING TAB 5MG PO PRN (15:33)
[2020-08-24] MEDS ORDERED: diphenhydrAMINE 50MG/ML VIAL (J1200) IM STA (21:23)
[2020-08-24] MEDS ORDERED: LORazepam 2 MG/ML VIAL IM STA (21:23)
[2020-08-24] MEDS ORDERED: HALOPERIDOL 5MG/ML VIAL (J1630 PER 1) IM STA (21:23)
[2020-08-25] MEDS: risperiDONE 1 MG TAB PO SCH ×2 (08:55→10:55)
[2020-08-25] MEDS: OLANZapine ORAL DISINTEGRATING TAB 5MG PO PRN ×4 (08:55→20:14)
[2020-08-25 16:13] VITALS: BP 124/70
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
[2020-08-25] MEDS ORDERED: PALIPERIDONE PALMITATE 234MG/1.5ML INJ (INVEGA)(FREE PSY INPT ONLY) IM ONE (17:00)
--- NOTE | 2020-08-25 18:45 | HPEPDOC ---
General Date of Admission Aug 24, 2020 at 11:55 Date of Service: Aug 25, 2020 Chief Complaint The patient is a 19-year-old female admitted with a reason for visit of Unspecified Psychotic Disorder. Source: Patient Exam Limitations: No limitations Timing/Duration: Week(s) Severity: Moderate History of Present Illness Patient is 19 years old female with history of bipolar disorder who was transferred to mental health unit after she was treated in the hospital general floor for rhabdomyolysis. She was proved to the hospital with severe agitation, she was restrained and she developed rhabdomyolysis which was treated with IV fluid with positive effect. Patient stated that she has a long history of mental illness and she was noncompliant treatment. Patient denies fever, chills, nausea, vomiting, diarrhea or dysuria Home Medications No Active Prescriptions or Reported Meds Allergies Coded Allergies: No Known Allergies (Unverified , 12/18/16) Past Medical History Medical History PTSD Bipolar disorder Depression Family History I personally reviewed family history and found not pertinent Social History * Smoker: current smoker Alcohol: occationally Drugs: marijuana A-FIB/CHADSVASC A-FIB History Current/History of A-Fib/PAF?: No Current PO Anticoag Therapy: No Review of Systems Constitutional: Denies: Chills Eyes: Denies: Pain Skin: Denies: Rash Pulmonary: Denies: Dyspnea Cardiovascular: Denies: Chest Pain Gastrointestinal: Denies: Nausea, Vomiting Genitourinary: Denies: Dysuria, Frequency Hematologic: Denies: Bruising Musculoskeletal: Denies: Neck Pain Neurological: Denies: Weakness Psych: Reports: Depression Physical Examination General Exam: Positive: Alert, Cooperative Eye Exam: Positive: PERRLA ENT Exam: Positive: Atraumatic Neck Exam: Positive: Supple; Negative: JVD Chest Exam: Positive: Clear to auscultation Heart Exam: Positive: Rate Normal Telemetry: Positive: No significant arrhythmia Abdomen Exam: Positive: Normal bowel sounds Extremity Exam: Negative: Clubbing Skin Exam: Positive: Nl turgor and temperature Neuro Exam: Positive: Normal Gait Psych Exam: Positive: Anxiety Vital Signs Vital Signs Date Time Temp Pulse Resp B/P (MAP) Pulse Ox O2 Delivery O2 Flow Rate FiO2 08/25/20 16:13 98.6 99 16 124/70 (88) Assessment/Plan Patient is 19 years old female with history of bipolar disorder who was transferred to mental health unit after she was treated in the hospital general floor for rhabdomyolysis. She was proved to the hospital with severe agitation, she was restrained and she developed rhabdomyolysis which was treated with IV fluid with positive effect. Patient stated that she has a long history of mental illness and she was noncompliant treatment. Patient denies fever, chills, nausea, vomiting, diarrhea or dysuria Problems (1) Bipolar disorder (manic depression) Status: Chronic Problem Text: Deferred treatment to psych team Plan / VTE VTE Prophylaxis Ordered?: No VTE Exclusion Mechanical Proph: Low Risk for VTE CARYN LISA DO Aug 25, 2020 18:45
[2020-08-25] MEDS: traZODone 50 MG TAB PO PRN (20:14)
[2020-08-26] MEDS: risperiDONE 1 MG TAB PO SCH (08:09)
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
[2020-08-26] MEDS: OLANZapine ORAL DISINTEGRATING TAB 5MG PO PRN (13:16)
[2020-08-27 06:21] VITALS: BP 126/70
[2020-08-27] MEDS: risperiDONE 1 MG TAB PO SCH (09:38)
[2020-08-27] MEDS: OLANZapine ORAL DISINTEGRATING TAB 5MG PO PRN (09:38)
--- NOTE | 2020-08-27 15:35 | MHIPNPDOC ---
[facility] Progress Note Progress Note DATE OF SERVICE: 08/27/20 HISTORY: Patient is a 19 year old Single, Domiciled -[place] Female who was a direct admit from Medical for Rhabdomyolysis. This 19-year-old woman was transferred from the medical service where she had been admitted for severe rhabdomyolysis. The patient was very agitated and had to be restrained at times and she was refusing blood draws and medications; and because of her rhabdomyolysis, Dr. Foster, did not want to start her on any standing order of antipsychotic and recommended that she just treated with Ativan for agitation. Today she was transferred to psychiatric unit as she is now medically cleared. The patient actually remembered having seen me in the past. She had been in the psychiatric unit before in October 2019 and upon discharge, they referred her to me and she was on Abilify Maintena 400 mg I.M. every month and so continued that for her, but the patient then stopped coming back. She tells me that she did not like the Abilify and tells me that it was giving her side effects. On the one hand she tells me that there is nothing wrong with her, that she does not really have any psychiatric illness, but then when I suggested that we start her on Risperidone and maybe start her on a different intermediate card tender injectable like Invega Sustenna; she agreed right away. She said that she liked Risperdal and I am assuming that she took it before. She says that it was very good for my mental state, but she denied ever being on Invega Sustenna injection. The patient is still somewhat confused. She is not able to give much history, but I did have history from when I saw her at [facility] on 12/28/2019. According to that evaluation, she had stated that six months prior, she had attempted to hang herself, but had never told anyone and she says that she was very depressed and having suicidal thoughts. Also, for the six months prior to that she was described as having insomnia and it was the primary that sent her to the psychiatric unit. At that point, she was having grandiose delusions. The pa stefanie's mother had indicated that she had been declining for actually two years before that with depressed mood, as well as her behavior and not sleeping and she had been abusing cannabis. The patient had been diagnosed with Bipolar disorder, Post Traumatic Stress Disorder, Substance Abuse Disorder when she was in the hospital. Discharged on Abilify Maintena 400 mg I.M. and Trazodone 50 mg q.h.s. as needed for insomnia. VITAL SIGNS: See below. NEW TEST RESULTS: CURRENT MEDICATIONS: See below. MENTAL STATUS EXAMINATION: Patient is a 19-year old Single, Domiciled, female, who is was admitted to psychiatry from Medical due to Rhabdomyolysis. She is on 1:1 sitter due to her psychotic presentation. She is dressed in hospital scrubs and has fair hygiene and grooming. Patient is calm and cooperative in the interview. She is in her room, moving about the room making her bed and straightening things Speech: low tone and low volume Language skills are intact Thought processes including: disorganized and scattered Thought content: denies depression, admits to some anxiety during commotion on the unit and denies suicidal/homicidal ideation Abstract reasoning, and computation: fair Description of associations: Denies Description of abnormal or psychotic thoughts: Patient is poor thought process, disorganized and scattered, mild flight of ideas Judgment: Poor Insight: Poor Orientation: Alert and oriented to person states "I am at [facility] inpatient or outpatient, I am not sure but I am not patient" Recent and remote memory: Fair Attention span and concentration: Poor Language: Expansive Fund of knowledge: Average Mood: Euphoric at times, euthymic other times. Affect: Reactive DIAGNOSES: 1. Other specified bipolar disorder, rule out substance induced mood disorder. 2. Social anxiety. 3. Posttraumatic stress disorder symptoms by history. 4. Cannabis use disorder, moderate 5. Alcohol use disorder, mild (binges) 6. Hallucinogen use disorder, mild. 7. Stimulant use disorder, mild 8. Rule out borderline personality disorder. ASSESSMENT: Patient found in her room, making her room and straightening things. She is disorganized and scattered in thoughts. States "I am at [facility], I am in patient or outpatient, I am not sure, I am patient myself. I don't know why but I am patient." Later in her disorganized and rambling she states " I am , Modernized Israeli and Swedish, but I never felt White, I don't have privilege." States she was anxious during some commotion on the unit. She was observed in the hallways very euphoric, skipping and laughing nonsensically. She remains on 1:1 observation due to her impulsive and intrusive behaviors. According to jayla, patient needs to be redirected often and is attempting to go into patients rooms. MANAGEMENT PLAN: Continue all treatment and medications as ordered. Patient is demonstrating poor insight, poor judgment, mild flight of ideas. Due to her poor thought process she is not able to be discharged at this time. TIME SPENT: 25 minutes. Vital Signs Vital Signs Date Time Temp Pulse Resp B/P (MAP) Pulse Ox O2 Delivery O2 Flow Rate FiO2 08/27/20 06:21 96.7 114 20 126/70 (88) 99 Room Air Current Medications Current Medications Medications (Trade) Dose Ordered Sig/Jovani Route PRN Reason Start Time Stop Time Status Last Admin Dose Admin Acetaminophen (Tylenol Tab) 650 mg Q6HP PRN PO HEADACHE or DISCOMFORT 08/24/20 11:45 08/26/20 13:16 Al Hydrox/Mg Hydrox/Simethicone (Mylanta) 30 ml Q4HP PRN PO HEARTBURN/INDIGESTION 08/24/20 11:45 Aripiprazole (AbiLIFY) 5 mg BID PO 08/24/20 09:00 08/27/20 09:38 Diphenhydramine HCl (Benadryl) 50 mg STAT STAT IM 08/24/20 21:23 08/24/20 21:25 DC 08/24/20 21:35 Haloperidol (Haldol) 10 mg STAT STAT IM 08/24/20 21:23 08/24/20 21:25 DC 08/24/20 21:35 Lorazepam (Ativan) 2 mg STAT STAT IM 08/24/20 21:23 08/24/20 21:25 DC 08/24/20 21:35 Magnesium Hydroxide (Milk Of Magnesia) 30 ml DAILYPRN PRN PO CONSTIPATION 08/24/20 11:45 Olanzapine (ZyPREXA ZYDIS) 5 mg Q4HP PRN PO AGITATION 08/24/20 11:45 08/27/20 09:38 Risperidone (RisperDAL) 1 mg DAILY PO 08/25/20 09:00 08/27/20 09:38 Trazodone HCl (Desyrel) 50 mg QHSP PRN PO INSOMNIA 08/24/20 11:45 08/25/20 20:14 Allergies Coded Allergies: No Known Allergies (Unverified , 12/18/16) LEDY FRIEDMAN NP Aug 27, 2020 15:35
[2020-08-28] MEDS: OLANZapine ORAL DISINTEGRATING TAB 5MG PO PRN (00:41)
[2020-08-28] MEDS: traZODone 50 MG TAB PO PRN (00:41)
[2020-08-28 06:17] VITALS: BP 134/74
[2020-08-28] MEDS: risperiDONE 1 MG TAB PO SCH (08:19)
[2020-08-28] MEDS ORDERED: PALIPERIDONE PALMITATE 156MG/1ML INJ(INVEGA)(FREE PSY INPT ONLY) IM ONE (10:00)
--- NOTE | 2020-08-28 13:00 | MHIPN ---
[facility] PROGRESS NOTE DATE: 08/25/2020 HISTORY OF PRESENT ILLNESS: The patient today remains very psychotic. She kept on getting up and down from her chair. I could not explain why she was doing that. MENTAL STATUS EXAM: This patient is alert and oriented times 3. Eye contact is poor. She starts to tell you something and she does not even finish her sentences. She is not able to even describe her mood. Affect is flat. She is psychotic. She is not voicing any suicidal or homicidal ideation. Concentration is poor. Insight and judgment poor. DIAGNOSES: 1. Unspecified bipolar disorder. 2. Rule out substance induced mood disorder. 3. Social anxiety. 4. Post traumatic stress disorder by history. 5. Cannabis use disorder moderate. 6. Alcoholic use disorder mild. 7. Hallucinogen use disorder mild. 8. Stimulant use disorder mild. 9. Rule out borderline personality disorder. TREATMENT PLAN: At this point the patient remains really psychotic. She did tolerate the Risperdal and had no allergic reaction and she is willing to go ahead and start her Invega Sustenna injection 234 mg IM and she will get a second dose in 3 days.
[2020-08-28] MEDS ORDERED: OLANZapine ORAL DISINTEGRATING TAB 5MG PO ONE (15:00)
[2020-08-28] MEDS ORDERED: HALOPERIDOL 5MG/ML VIAL (J1630 PER 1) IM ONE (15:15)
[2020-08-28] MEDS ORDERED: LORazepam 2 MG/ML VIAL IM ONE (15:15)
[2020-08-28] MEDS ORDERED: diphenhydrAMINE 50MG/ML VIAL (J1200) IM ONE (15:15)
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
[2020-08-29] MEDS: risperiDONE 1 MG TAB PO SCH (09:07)
[2020-08-29] MEDS ORDERED: diphenhydrAMINE 50MG CAP As Ordered ONE (09:59)
[2020-08-29] MEDS ORDERED: LORazepam 2 MG TAB As Ordered ONE (09:59)
--- NOTE | 2020-08-29 12:54 | MHIPNPDOC ---
[facility] Progress Note Progress Note DATE OF SERVICE: 08/29/20 HISTORY: Patient is a 19 year old Single, Domiciled -Mexican Female who was a direct admit from Medical for Rhabdomyolysis. This 19-year-old woman was transferred from the medical service where she had been admitted for severe rhabdomyolysis. The patient was very agitated and had to be restrained at times and she was refusing blood draws and medications; and because of her rhabdomyolysis, Dr. Foster, did not want to start her on any standing order of antipsychotic and recommended that she just treated with Ativan for agitation. Today she was transferred to psychiatric unit as she is now medically cleared. The patient actually remembered having seen me in the past. She had been in the psychiatric unit before in October 2019 and upon discharge, they referred her to me and she was on Abilify Maintena 400 mg I.M. every month and so continued that for her, but the patient then stopped coming back. She tells me that she did not like the Abilify and tells me that it was giving her side effects. On the one hand she tells me that there is nothing wrong with her, that she does not really have any psychiatric illness, but then when I suggested that we start her on Risperidone and maybe start her on a different buttermilk drier operator injectable like Invega Sustenna; she agreed right away. She said that she liked Risperdal and I am assuming that she took it before. She says that it was very good for my mental state, but she denied ever being on Invega Sustenna injection. The patient is still somewhat confused. She is not able to give much history, but I did have history from when I saw her at [facility] on 12/28/2019. According to that evaluation, she had stated that six months prior, she had attempted to hang herself, but had never told anyone and she says that she was very depressed and having suicidal thoughts. Also, for the six months prior to that she was described as having insomnia and it was the primary that sent her to the psychiatric unit. At that point, she was having grandiose delusions. The pa stefanie's mother had indicated that she had been declining for actually two years before that with depressed mood, as well as her behavior and not sleeping and she had been abusing cannabis. The patient had been diagnosed with Bipolar disorder, Post Traumatic Stress Disorder, Substance Abuse Disorder when she was in the hospital. Discharged on Abilify Maintena 400 mg I.M. and Trazodone 50 mg q.h.s. as needed for insomnia. VITAL SIGNS: See below. NEW TEST RESULTS: CURRENT MEDICATIONS: See below. MENTAL STATUS EXAMINATION: Patient is a 19-year old Single, Domiciled, female, who is was admitted to psychiatry from Medical due to Rhabdomyolysis. She is on 1:1 sitter due to her psychotic presentation. She is dressed in hospital scrubs and has fair hygiene and grooming. Patient is in the hallway yelling. Speech: Angry, agitated, loud Language skills are intact Thought processes including: disorganized and scattered Thought content: refused to answer Abstract reasoning, and computation: fair Description of associations: Denies, disorganized at times she makes grandiose statements Description of abnormal or psychotic thoughts: Patient is poor thought process, disorganized and scattered, aggressive and agitated, she is easily provoked Judgment: Poor Insight: Poor Orientation: Alert and oriented to person place and time Recent and remote memory: Fair Attention span and concentration: Poor Language: Expansive Fund of knowledge: Average Mood: Labile/agitated Affect: hypervigilant DIAGNOSES: 1. Other specified bipolar disorder, rule out substance induced mood disorder. 2. Social anxiety. 3. Posttraumatic stress disorder symptoms by history. 4. Cannabis use disorder, moderate 5. Alcohol use disorder, mild (binges) 6. Hallucinogen use disorder, mild. 7. Stimulant use disorder, mild 8. Rule out borderline personality disorder. ASSESSMENT: Patient found in the hallway, yelling at sitter. According to staff patient had been going into other peer's rooms, getting very agitated and verbally aggressive with other patient's. She is very confrontational, again very aggressive and demonstrating impulsive behaviors on the unit. She is at times threatening to other peers and staff and needs much redirecting. Patient is unable to be in groups due to disorganized and scattered thinking. She is often disruptive on the unit with loud, pressured speech. Patient has refused to take the 2nd Invega Sustenna IM injection and often refuses that offer of anxiolytics/PRN antipsychotics for her agitation. She was medicated today due to her extreme level of aggression and confrontational behaviors but she was willing to take oral medications. Patient willingly took Haldol 10 mg, Ativan 2 mg and Benadryl 50 mg orally.. At this time, medications are effective. Patient is demonstrating poor insight, poor judgment, flight of ideas. Due to her poor thought process ,poor insight and poor judgment and level of dangerousness, she is not appropriate for discharge at this time. MANAGEMENT PLAN: Continue all treatment and medications as ordered. TIME SPENT: 25 minutes. Vital Signs Vital Signs Date Time Temp Pulse Resp B/P (MAP) Pulse Ox O2 Delivery O2 Flow Rate FiO2 08/28/20 06:17 98.5 124 20 134/74 (94) 99 Room Air Current Medications Current Medications Medications (Trade) Dose Ordered Sig/Jovani Route PRN Reason Start Time Stop Time Status Last Admin Dose Admin Acetaminophen (Tylenol Tab) 650 mg Q6HP PRN PO HEADACHE or DISCOMFORT 08/24/20 11:45 08/26/20 13:16 Al Hydrox/Mg Hydrox/Simethicone (Mylanta) 30 ml Q4HP PRN PO HEARTBURN/INDIGESTION 08/24/20 11:45 Aripiprazole (AbiLIFY) 5 mg BID PO 08/24/20 09:00 08/29/20 09:07 Diphenhydramine HCl (Benadryl) 50 mg STAT STAT IM 08/24/20 21:23 08/24/20 21:25 DC 08/24/20 21:35 Haloperidol (Haldol) 10 mg STAT STAT IM 08/24/20 21:23 08/24/20 21:25 DC 08/24/20 21:35 Lorazepam (Ativan) 2 mg STAT STAT IM 08/24/20 21:23 08/24/20 21:25 DC 08/24/20 21:35 Magnesium Hydroxide (Milk Of Magnesia) 30 ml DAILYPRN PRN PO CONSTIPATION 08/24/20 11:45 Olanzapine (ZyPREXA ZYDIS) 5 mg Q4HP PRN PO AGITATION 08/24/20 11:45 08/28/20 00:41 Risperidone (RisperDAL) 1 mg DAILY PO 08/25/20 09:00 08/29/20 09:07 Trazodone HCl (Desyrel) 50 mg QHSP PRN PO INSOMNIA 08/24/20 11:45 08/28/20 00:41 Allergies Coded Allergies: No Known Allergies (Unverified , 12/18/16) LEDY FRIEDMAN NP Aug 29, 2020 12:54
[2020-08-29] MEDS ORDERED: LORazepam 2 MG TAB PO ONE (22:00)
[2020-08-29] MEDS ORDERED: diphenhydrAMINE 50MG CAP PO ONE (22:00)
[2020-08-30] MEDS ORDERED: diphenhydrAMINE 50MG/ML VIAL (J1200) IM STA ×2 (09:16→09:57)
[2020-08-30] MEDS ORDERED: HALOPERIDOL 5MG/ML VIAL (J1630 PER 1) IM STA (09:16)
[2020-08-30] MEDS ORDERED: LORazepam 2 MG/ML VIAL IM STA ×2 (09:16→09:58)
[2020-08-30 09:30] VITALS: BP 125/74
--- NOTE | 2020-08-30 12:56 | MHIPNPDOC ---
[facility] Progress Note Progress Note DATE OF SERVICE: 08/30/20 HISTORY: Patient is a 19 year old Single, Domiciled -French Female who was a direct admit from Medical for Rhabdomyolysis. It was reported that patient was psychotic due to LSD ingestion. This 19-year-old woman was transferred from the medical service where she had been admitted for severe rhabdomyolysis. The patient was very agitated and had to be restrained at times and she was refusing blood draws and medications; and because of her rhabdomyolysis, Dr. Foster, did not want to start her on any standing order of antipsychotic and recommended that she just treated with Ativan for agitation. Today she was transferred to psychiatric unit as she is now medically cleared. The patient actually remembered having seen me in the past. She had been in the psychiatric unit before in October 2019 and upon discharge, they referred her to me and she was on Abilify Maintena 400 mg I.M. every month and so continued that for her, but the patient then stopped coming back. She tells me that she did not like the Abilify and tells me that it was giving her side effects. On the one hand she tells me that there is nothing wrong with her, that she does not really have any psychiatric illness, but then when I suggested that we start her on Risperidone and maybe start her on a different intermediate injectable like Invega Sustenna; she agreed right away. She said that she liked Risperdal and I am assuming that she took it before. She says that it was very good for my mental state, but she denied ever being on Invega Sustenna injection. The patient is still somewhat confused. She is not able to give much history, but I did have history from when I saw her at [facility] on 12/28/2019. According to that evaluation, she had stated that six months prior, she had attempted to hang herself, but had never told anyone and she says that she was very depressed and having suicidal thoughts. Also, for the six months prior to that she was described as having insomnia and it was the primary that sent her to the psychiatric unit. At that point, she was having grandiose delusions. The patient's mother had indicated that she had been declining for actually two years before that with depressed mood, as well as her behavior and not sleeping and she had been abusing cannabis. The patient had been diagnosed with Bipolar disorder, Post Traumatic Stress Disorder, Substance Abuse Disorder when she was in the hospital. Discharged on Abilify Maintena 400 mg I.M. and Trazodone 50 mg q.h.s. as needed for insomnia. VITAL SIGNS: See below. NEW TEST RESULTS: CURRENT MEDICATIONS: See below. MENTAL STATUS EXAMINATION: Patient is a 19-year old Single, Domiciled, female, who is was admitted to psychiatry from Medical due to Rhabdomyolysis. She is on 1:1 sitter due to her psychotic presentation. She is dressed in hospital scrubs and has fair hygiene and grooming. Patient is in the hallway yelling. Speech: Angry, agitated, loud Language skills are intact Thought processes including: disorganized and scattered Thought content: refused to answer Abstract reasoning, and computation: fair Description of associations: Denies, disorganized at times she makes grandiose statements Description of abnormal or psychotic thoughts: Patient is poor thought process, disorganized and scattered, aggressive and agitated, she is easily provoked Judgment: Poor Insight: Poor Orientation: Alert and oriented to person place and time Recent and remote memory: Fair Attention span and concentration: Poor Language: Expansive Fund of knowledge: Average Mood: Labile/agitated Affect: hypervigilant DIAGNOSES: 1. Other specified bipolar disorder, rule out substance induced mood disorder. 2. Social anxiety. 3. Posttraumatic stress disorder symptoms by history. 4. Cannabis use disorder, moderate 5. Alcohol use disorder, mild (binges) 6. Hallucinogen use disorder, mild. 7. Stimulant use disorder, mild 8. Rule out borderline personality disorder. ASSESSMENT: Patient found in the hallway, patient continues to go into other peer's rooms, she is very agitated and verbally aggressive with other patient's and staff. She is very confrontational, disruptive and continues to be very aggressive and demonstrating impulsive behaviors on the unit. She continues to be threatening to other peers and staff and needs much redirecting. Patient is unable to be in groups due to her disruptive behaviors. Patient has refused to take the 2nd Invega Sustenna IM injection and often refuses that offer of anxiolytics/PRN antipsychotics for her agitation. She was medicated today due to her extreme level of aggression and confrontational behaviors but she was willing to take oral medications. She refused oral medications when offered due to her threats of violence, then attempted to get into the shower and emergency medications were ordered for intramuscular. At this time, medications are effective. Patient is demonstrating poor insight, poor judgment, flight of ideas. Due to her poor thought process, poor insight and poor judgment and level of dangerousness, she is not appropriate for discharge at this time. She has been medicated for emergency medications several days in a row with no improvement in lessening her threats or violence or lessening her aggression. Reinforced with the patient that she will need to consistently taken medications and have normal mentation with no threats of violence to be discharged to home. MANAGEMENT PLAN: Continue all treatment and medications as ordered. We are pursuing a 2 PC at this time and probable transfer to [facility] for further hospitalization. TIME SPENT: 25 minutes. Vital Signs Vital Signs Date Time Temp Pulse Resp B/P (MAP) Pulse Ox O2 Delivery O2 Flow Rate FiO2 08/30/20 09:30 99.0 87 18 125/74 99 08/28/20 06:17 Room Air Current Medications Current Medications Medications (Trade) Dose Ordered Sig/Jovani Route PRN Reason Start Time Stop Time Status Last Admin Dose Admin Acetaminophen (Tylenol Tab) 650 mg Q6HP PRN PO HEADACHE or DISCOMFORT 08/24/20 11:45 08/26/20 13:16 Al Hydrox/Mg Hydrox/Simethicone (Mylanta) 30 ml Q4HP PRN PO HEARTBURN/INDIGESTION 08/24/20 11:45 Aripiprazole (AbiLIFY) 5 mg BID PO 08/24/20 09:00 08/29/20 22:01 Diphenhydramine HCl (Benadryl) 50 mg STAT STAT IM 08/30/20 09:16 08/30/20 09:20 DC 08/30/20 09:38 Diphenhydramine HCl (Benadryl) 50 mg STAT STAT IM 08/30/20 09:57 08/30/20 09:58 DC 08/30/20 10:15 Diphenhydramine HCl (Benadryl) 50 mg STAT STAT IM 08/24/20 21:23 08/24/20 21:25 DC 08/24/20 21:35 Haloperidol (Haldol) 10 mg STAT STAT IM 08/30/20 09:16 08/30/20 09:20 DC 08/30/20 09:38 Haloperidol (Haldol) 10 mg STAT STAT IM 08/24/20 21:23 08/24/20 21:25 DC 08/24/20 21:35 Lorazepam (Ativan) 1 mg STAT STAT IM 08/30/20 09:58 08/30/20 10:00 DC 08/30/20 10:15 Lorazepam (Ativan) 2 mg STAT STAT IM 08/30/20 09:16 08/30/20 09:20 DC 08/30/20 09:38 Lorazepam (Ativan) 2 mg STAT STAT IM 08/24/20 21:23 08/24/20 21:25 DC 08/24/20 21:35 Magnesium Hydroxide (Milk Of Magnesia) 30 ml DAILYPRN PRN PO CONSTIPATION 08/24/20 11:45 Olanzapine (ZyPREXA ZYDIS) 5 mg Q4HP PRN PO AGITATION 08/24/20 11:45 08/28/20 00:41 Risperidone (RisperDAL) 1 mg DAILY PO 08/25/20 09:00 08/29/20 12:56 DC 08/29/20 09:07 Trazodone HCl (Desyrel) 50 mg QHSP PRN PO INSOMNIA 08/24/20 11:45 08/28/20 00:41 Allergies Coded Allergies: No Known Allergies (Unverified , 12/18/16) LEDY FRIEDMAN NP Aug 30, 2020 12:56
[2020-08-30] MEDS: traZODone 50 MG TAB PO PRN (21:01)
[2020-08-30] MEDS: OLANZapine ORAL DISINTEGRATING TAB 5MG PO PRN (21:02)
[2020-08-31 06:52] VITALS: BP 136/66
[2020-08-31] MEDS ORDERED: [UNRECOGNIZED DRUG - REMARK] XX SCH (09:00)
[2020-08-31 11:15] VITALS: BP 144/88
[2020-08-31] MEDS ORDERED: LORazepam 2 MG/ML VIAL IM STA (11:17)
[2020-08-31] MEDS ORDERED: HALOPERIDOL 5MG/ML VIAL (J1630 PER 1) IM STA (11:17)
[2020-08-31] MEDS ORDERED: LORazepam 2 MG/ML VIAL As Ordered ONE (11:22)
[2020-08-31] MEDS ORDERED: PALIPERIDONE PALMITATE 156MG/1ML INJ(INVEGA)(FREE PSY INPT ONLY) IM ONE (13:45)
[2020-08-31] MEDS: traZODone 50 MG TAB PO PRN (20:31)
[2020-08-31] MEDS: NICOTINE POLACRILEX 2 MG GUM PO PRN (21:23)
[2020-09-01 06:34] VITALS: BP 115/56
[2020-09-01] MEDS ORDERED: PALIPERIDONE PALMITATE 156MG/1ML INJ(INVEGA)(FREE PSY INPT ONLY) IM ONE (08:00)
[2020-09-01] MEDS ORDERED: LORazepam 2 MG/ML VIAL IM STA (17:04)
[2020-09-01] MEDS ORDERED: HALOPERIDOL 5MG/ML VIAL (J1630 PER 1) IM STA (17:04)
[2020-09-01 17:05] VITALS: BP 145/90
[2020-09-01 17:20] VITALS: BP 158/92
[2020-09-01 17:35] VITALS: BP 151/84
[2020-09-01 17:50] VITALS: BP 148/88
[2020-09-01 17:58] VITALS: BP 150/85
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
--- NOTE | 2020-09-02 13:00 | MHIPNPDOC ---
[facility] Progress Note Progress Note DATE OF SERVICE: 09/02/20 Patient is a 19 year old Single, Domiciled -Nigerien Female who was a direct admit from Medical for Rhabdomyolysis. It was reported that patient was psychotic due to LSD ingestion. This 19-year-old woman was transferred from the medical service where she had been admitted for severe rhabdomyolysis. VITAL SIGNS: See below. NEW TEST RESULTS: CURRENT MEDICATIONS: See below. MENTAL STATUS EXAMINATION: Patient is a 19-year old Single, Domiciled, female, who is was admitted to psychiatry from Medical due to Rhabdomyolysis. She is on 1:1 sitter due to her psychotic presentation. She is dressed in hospital scrubs and has fair hygiene and grooming. Patient is in the hallway yelling. Speech: normal rate tone and volume Language skills are intact Thought processes including: less disorganized and scattered Thought content: refused to answer Abstract reasoning, and computation: fair Description of associations: Denies, disorganized at times she makes grandiose statements Description of abnormal or psychotic thoughts: Patient is poor thought process, disorganized and scattered, has a history of agitation with other patients and staff Judgment: Poor Insight: Poor Orientation: Alert and oriented to person place and time Recent and remote memory: Fair Attention span and concentration: Poor Language: Expansive Fund of knowledge: Average Mood: euphoric Affect: reactive DIAGNOSES: 1. Other specified bipolar disorder, rule out substance induced mood disorder. 2. Social anxiety. 3. Posttraumatic stress disorder symptoms by history. 4. Cannabis use disorder, moderate 5. Alcohol use disorder, mild (binges) 6. Hallucinogen use disorder, mild. 7. Stimulant use disorder, mild 8. Rule out borderline personality disorder. ASSESSMENT: Patient was calmer in today's interview, she is disheveled in the interview. She is guarded and at one time during her interview, called her mother who lives in a different state, it appears that patient have improved ability to converse appropriately when speaking to mother. Although patient appeared to have confabulation while speaking with mother with regards to how well she is doing. Stated to her mother that she is being discharged to home (which she is not) and appeared to be somewhat grandiose in her future plans. MANAGEMENT PLAN: Continue all treatment and medications as ordered. Increase Abilify 10 mg BID. We are pursuing a 2 PC at this time and [facility]. TIME SPENT: 25 minutes. Vital Signs Vital Signs Date Time Temp Pulse Resp B/P (MAP) Pulse Ox O2 Delivery O2 Flow Rate FiO2 09/01/20 17:58 98.2 105 18 150/85 100 Room Air Current Medications Current Medications Medications (Trade) Dose Ordered Sig/Jovani Route PRN Reason Start Time Stop Time Status Last Admin Dose Admin Acetaminophen (Tylenol Tab) 650 mg Q6HP PRN PO HEADACHE or DISCOMFORT 08/24/20 11:45 08/26/20 13:16 Al Hydrox/Mg Hydrox/Simethicone (Mylanta) 30 ml Q4HP PRN PO HEARTBURN/INDIGESTION 08/24/20 11:45 Aripiprazole (AbiLIFY) 5 mg BID PO 08/24/20 09:00 09/02/20 08:07 Diphenhydramine HCl (Benadryl) 50 mg STAT STAT IM 08/30/20 09:16 08/30/20 09:20 DC 08/30/20 09:38 Diphenhydramine HCl (Benadryl) 50 mg STAT STAT IM 08/30/20 09:57 08/30/20 09:58 DC 08/30/20 10:15 Diphenhydramine HCl (Benadryl) 50 mg STAT STAT IM 08/24/20 21:23 08/24/20 21:25 DC 08/24/20 21:35 Haloperidol (Haldol) 5 mg STAT STAT IM 09/01/20 17:04 09/01/20 17:06 DC 09/01/20 17:17 Haloperidol (Haldol) 10 mg STAT STAT IM 08/30/20 09:16 08/30/20 09:20 DC 08/30/20 09:38 Haloperidol (Haldol) 10 mg STAT STAT IM 08/31/20 11:17 08/31/20 11:21 DC 08/31/20 11:31 Haloperidol (Haldol) 10 mg STAT STAT IM 08/24/20 21:23 08/24/20 21:25 DC 08/24/20 21:35 Lorazepam (Ativan) 1 mg STAT STAT IM 08/30/20 09:58 08/30/20 10:00 DC 08/30/20 10:15 Lorazepam (Ativan) 1 mg STAT STAT IM 09/01/20 17:04 09/01/20 17:06 DC 09/01/20 17:17 Lorazepam (Ativan) 2 mg STAT STAT IM 08/30/20 09:16 08/30/20 09:20 DC 08/30/20 09:38 Lorazepam (Ativan) 2 mg STAT STAT IM 08/31/20 11:17 08/31/20 11:21 DC 08/31/20 11:31 Lorazepam (Ativan) 2 mg STAT STAT IM 08/24/20 21:23 08/24/20 21:25 DC 08/24/20 21:35 Magnesium Hydroxide (Milk Of Magnesia) 30 ml DAILYPRN PRN PO CONSTIPATION 08/24/20 11:45 Nicotine (Nicorette) 2 mg Q6HP PRN PO NICOTINE WITHDRAWAL 08/31/20 20:45 08/31/20 21:23 Non-Formulary Medication ( See Comment Field Below ) OFFER INVEGA SUSTE... DAILY XX 08/31/20 09:00 09/01/20 06:59 DC Olanzapine (ZyPREXA ZYDIS) 5 mg Q4HP PRN PO AGITATION 08/24/20 11:45 08/30/20 21:02 Risperidone (RisperDAL) 1 mg DAILY PO 08/25/20 09:00 08/29/20 12:56 DC 08/29/20 09:07 Trazodone HCl (Desyrel) 50 mg QHSP PRN PO INSOMNIA 08/24/20 11:45 08/31/20 20:31 Allergies Coded Allergies: No Known Allergies (Unverified , 12/18/16) LEDY FRIEDMAN NP Sep 02, 2020 13:00
--- NOTE | 2020-09-02 14:23 | WAPSY-FUP ---
[facility] PSYCH FOLLOWUP ASSESSMENT DATE OF ADMISSION: 08/24/2020 VITAL SIGNS: Blood pressure 158/92, pulse 108, temperature 99. CHIEF COMPLAINT: Says doing okay. SUBJECTIVE: Seen for followup, by video, in the presence of staff. She says has been doing okay and that she generally does fine, feels harassed by others. Says had a better night. She says has been eating okay. Says her mind races onto things that she likes. MENTAL STATUS EXAMINATION: She is neat, cooperative though guarded, coherent. Currently no agitation. No psychomotor retardation. Affect reactive, fair range. Denies any thoughts of harming herself or anyone else. No evidence of any psychosis. Cognition grossly intact. Judgment is compromised, as is insight. ASSESSMENT: 1. Other specified bipolar and related disorders. 2. Posttraumatic stress disorder by history. 3. Consider substance-induced mood disorder. 4. Cannabis use disorder. Less agitated than yesterday, when she was placed in restraints. Has not had any detrimental effects to the restraints currently. Less labile when seen today compared to yesterday. PLAN: Continue current care, observations. May need to consider increasing the Abilify as tolerated. She will still have access to the anti-agitation medications. Further recommendations will be made depending on the clinical picture.
[2020-09-02 17:11] VITALS: BP 122/72
[2020-09-02] MEDS ORDERED: HALOPERIDOL 5MG/ML VIAL (J1630 PER 1) IM STA ×2 (19:30→20:11)
[2020-09-02] MEDS ORDERED: LORazepam 2 MG/ML VIAL IM STA (19:30)
[2020-09-02] MEDS ORDERED: HALOPERIDOL 5MG/ML VIAL (J1630 PER 1) As Ordered ONE (19:32)
[2020-09-02] MEDS ORDERED: LORazepam 2 MG/ML VIAL As Ordered ONE (19:33)
[2020-09-02] MEDS: ARIPiprazole 10 MG TAB PO SCH (21:00)
[2020-09-03] MEDS ORDERED: TUBERCULIN PPD 5 UNITS/0.1 ML ID ONE (09:00)
[2020-09-03] MEDS: ARIPiprazole 10 MG TAB PO SCH ×2 (09:15→20:30)
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
[2020-09-03 16:24] VITALS: BP 122/70
[2020-09-04 06:20] VITALS: BP 122/67
[2020-09-04] MEDS: ARIPiprazole 10 MG TAB PO SCH ×2 (08:14→20:15)
--- NOTE | 2020-09-04 15:28 | MHIPNPDOC ---
[facility] Progress Note Progress Note DATE OF SERVICE: 09/04/20 Patient is a 19 year old Single, Domiciled -[place] Female who was a direct admit from Medical for Rhabdomyolysis. It was reported that patient was psychotic due to LSD ingestion. This 19-year-old woman was transferred from the medical service where she had been admitted for severe rhabdomyolysis. She was disorganized, scattered and delusional on medicine and admitted to psychiatry for these symptoms. VITAL SIGNS: See below. NEW TEST RESULTS: CURRENT MEDICATIONS: See below. MENTAL STATUS EXAMINATION: Patient is a 19-year old Single, Domiciled, female, who is was admitted to psychiatry from Medical due to Rhabdomyolysis. She is on 1:1 sitter due to her psychotic presentation. She is dressed in hospital scrubs and has fair hygiene and grooming. She makes good eye contact, not observed with psychomotor agitation or retardation Speech: normal rate tone and volume Language skills are intact Thought processes including: increased linear thinking, remains mildly disorganized Thought content: denies depression, anxiety and SI/HI. Abstract reasoning, and computation: fair Description of associations: Denies, she makes grandiose statements, states "I need to get back to school and start studying, I need this for myself because that's what is expected of me." Description of abnormal or psychotic thoughts: mildly disorganized and scattered, has a history of extreme agitation during this admission Judgment: Poor Insight: Poor Orientation: Alert and oriented to person place and time Recent and remote memory: Fair Attention span and concentration: Poor Language: Fair Fund of knowledge: Average Mood: labile Affect: flat DIAGNOSES: 1. Bipolar I Disorder, Manic Episode 2. Social anxiety. 3. Posttraumatic stress disorder symptoms by history. 4. Cannabis use disorder, moderate 5. Alcohol use disorder, mild (binges) 6. Hallucinogen use disorder, mild. 7. Stimulant use disorder, mild 8. Rule out borderline personality disorder. ASSESSMENT: Patient was calm in today's interview, she is disheveled in the interview. Patient is continued on 1:1 observations, she is at times, is not re- directable. She remains sexually preoccupied according to staff. She is often trying to touch another peer, dancing in the hallways, and kicking at doors. She is observed to be aggressive with her 1:1 sitter, has been behavioral and posturing towards staff at times, making motions to hit sitter but did not connect. She is verbally aggressive. On interview patient is calm and cooperative. She states that she only needs a "medical card" for her illness and that she can return to [employer], "to get her degree" She confabulates during the interview about memories that did not happen and at times she is grandiose with regards to returning to school, but has no capacity for it while she is ill. MANAGEMENT PLAN: Continue all treatment and medications as ordered. Patient agreeable to Mood Stabilizer, transfer to [facility] for further hospitalization. TIME SPENT: 25 minutes. Vital Signs Vital Signs Date Time Temp Pulse Resp B/P (MAP) Pulse Ox O2 Delivery O2 Flow Rate FiO2 09/04/20 06:20 97.8 116 18 122/67 (85) 98 Room Air Current Medications Current Medications Medications (Trade) Dose Ordered Sig/Jovani Route PRN Reason Start Time Stop Time Status Last Admin Dose Admin Acetaminophen (Tylenol Tab) 650 mg Q6HP PRN PO HEADACHE or DISCOMFORT 08/24/20 11:45 08/26/20 13:16 Al Hydrox/Mg Hydrox/Simethicone (Mylanta) 30 ml Q4HP PRN PO HEARTBURN/INDIGESTION 08/24/20 11:45 Aripiprazole (AbiLIFY) 5 mg BID PO 08/24/20 09:00 09/02/20 12:53 DC 09/02/20 08:07 Aripiprazole (AbiLIFY) 10 mg BID PO 09/02/20 21:00 09/04/20 08:14 Diphenhydramine HCl (Benadryl) 50 mg STAT STAT IM 08/30/20 09:16 08/30/20 09:20 DC 08/30/20 09:38 Diphenhydramine HCl (Benadryl) 50 mg STAT STAT IM 08/30/20 09:57 08/30/20 09:58 DC 08/30/20 10:15 Diphenhydramine HCl (Benadryl) 50 mg STAT STAT IM 08/24/20 21:23 08/24/20 21:25 DC 08/24/20 21:35 Haloperidol (Haldol) 5 mg STAT STAT IM 09/01/20 17:04 09/01/20 17:06 DC 09/01/20 17:17 Haloperidol (Haldol) 5 mg STAT STAT IM 09/02/20 19:30 09/02/20 19:33 DC 09/02/20 19:36 Haloperidol (Haldol) 5 mg STAT STAT IM 09/02/20 20:11 09/02/20 20:12 DC 09/02/20 20:21 Haloperidol (Haldol) 10 mg STAT STAT IM 08/30/20 09:16 08/30/20 09:20 DC 08/30/20 09:38 Haloperidol (Haldol) 10 mg STAT STAT IM 08/31/20 11:17 08/31/20 11:21 DC 08/31/20 11:31 Haloperidol (Haldol) 10 mg STAT STAT IM 08/24/20 21:23 08/24/20 21:25 DC 08/24/20 21:35 Lorazepam (Ativan) 1 mg STAT STAT IM 08/30/20 09:58 08/30/20 10:00 DC 08/30/20 10:15 Lorazepam (Ativan) 1 mg STAT STAT IM 09/01/20 17:04 09/01/20 17:06 DC 09/01/20 17:17 Lorazepam (Ativan) 1 mg STAT STAT IM 09/02/20 19:30 09/02/20 19:33 DC 09/02/20 19:36 Lorazepam (Ativan) 2 mg STAT STAT IM 08/30/20 09:16 08/30/20 09:20 DC 08/30/20 09:38 Lorazepam (Ativan) 2 mg STAT STAT IM 08/31/20 11:17 08/31/20 11:21 DC 08/31/20 11:31 Lorazepam (Ativan) 2 mg STAT STAT IM 08/24/20 21:23 08/24/20 21:25 DC 08/24/20 21:35 Magnesium Hydroxide (Milk Of Magnesia) 30 ml DAILYPRN PRN PO CONSTIPATION 08/24/20 11:45 Nicotine (Nicorette) 2 mg Q6HP PRN PO NICOTINE WITHDRAWAL 08/31/20 20:45 08/31/20 21:23 Non-Formulary Medication ( See Comment Field Below ) OFFER INVEGA SUSTE... DAILY XX 08/31/20 09:00 09/01/20 06:59 DC Olanzapine (ZyPREXA ZYDIS) 5 mg Q4HP PRN PO AGITATION 08/24/20 11:45 08/30/20 21:02 Risperidone (RisperDAL) 1 mg DAILY PO 08/25/20 09:00 08/29/20 12:56 DC 08/29/20 09:07 Trazodone HCl (Desyrel) 50 mg QHSP PRN PO INSOMNIA 08/24/20 11:45 08/31/20 20:31 Allergies Coded Allergies: No Known Allergies (Unverified , 12/18/16) LEDY FRIEDMAN NP Sep 04, 2020 10:07
[2020-09-04 16:21] VITALS: BP 125/77
[2020-09-04] MEDS: DIVALPROEX 125 MG TAB PO SCH (20:15)
[2020-09-04] MEDS: NICOTINE POLACRILEX 2 MG GUM PO PRN (20:48)
[2020-09-04] MEDS: traZODone 50 MG TAB PO PRN (21:57)
[2020-09-05 06:00] VITALS: BP 138/88
[2020-09-05] MEDS: ARIPiprazole 10 MG TAB PO SCH ×2 (09:23→21:59)
[2020-09-05] MEDS ORDERED: PPD DOCUMENTATION ENTRY MISC XX ONE (10:00)
--- NOTE | 2020-09-05 13:19 | MHIPNPDOC ---
[facility] Progress Note Progress Note DATE OF SERVICE: 09/05/20 Patient is a 19 year old Single, Domiciled -[place] Female who was a direct admit from Medical for Rhabdomyolysis. It was reported that patient was psychotic due to LSD ingestion. This 19-year-old woman was transferred from the medical service where she had been admitted for severe rhabdomyolysis. She was disorganized, scattered and delusional on medicine and admitted to psychiatry for these symptoms. VITAL SIGNS: See below. NEW TEST RESULTS: CURRENT MEDICATIONS: See below. MENTAL STATUS EXAMINATION: Patient is a 19-year old Single, Domiciled, female, who is was admitted to psychiatry from Medical due to Rhabdomyolysis. She is on 1:1 sitter due to her behavioral problems, risk for assault to others and at times psychotic symptoms. She is dressed in hospital scrubs and has fair hygiene and grooming. She makes good eye contact, not observed with psychomotor agitation or retardation Speech: normal rate tone and volume Language skills are intact Thought processes including: increased linear thinking Thought content: denies depression, anxiety and SI/HI. Abstract reasoning, and computation: fair Description of associations: Denies, she makes grandiose statements, states "I need to get back to school and I want to go to nursing school, I need this for myself because that's what is expected of me." Description of abnormal or psychotic thoughts: patient denies, none observed Judgment: improving Insight: improving Orientation: Alert and oriented to person place and time Recent and remote memory: Fair Attention span and concentration: improving Language: Fair Fund of knowledge: Average Mood: "I am good" Affect: flat, congruent to mood DIAGNOSES: 1. Bipolar I Disorder, Manic Episode 2. Social anxiety. 3. Posttraumatic stress disorder symptoms by history. 4. Cannabis use disorder, moderate 5. Alcohol use disorder, mild (binges) 6. Hallucinogen use disorder, mild. 7. Stimulant use disorder, mild 8. Rule out borderline personality disorder. ASSESSMENT: "Trying to exercise, walking in the hallway. I can see myself going to nursing school but also might need longer hospitalization." States that she has a short temper. "I don't want to instigate and I want to be helpful but that's my intention, it comes off as bad energy." Patient observed in the hallway, in good behavioral control during that momentary observation. She was not being sexual or having sexualized conversation with peer. She is not observed with psychotic symptoms during the interview. She demonstrated improved thought processes. She denies depression, denies anxiety or AV/VH or suicidal/homicidal thinking. I have reviewed the behaviors and incidents with the patient in which she had to be mechanically restrained and needed emergent medications to control her threats of harm towards others. Patient stated "I smoked weed and did hard core acid twice and I think this is because of a bad acid trip." Reviewed with the patient that treatment plan was to start a mood stabilized, she refused it yesterday. I have reviewed with her the need and she again agreed to taking it today. I reviewed with patient that treatment plan included a transfer to the [facility] for further hospitalization. Patient states that she feels that she is improving and would like to not be sent there if she improved. Reviewed with her that 1:1 sitter needs to be discontinued and her psychotic symptoms need to be eliminated in order for this consideration to be possible. Patient feels that she is improving and is hopeful to be discharged to home. MANAGEMENT PLAN: Continue all treatment and medications as ordered. Patient agreeable to Mood Stabilizer, transfer to [facility] for further hospitalization is now pending. TIME SPENT: 25 minutes. Vital Signs Vital Signs Date Time Temp Pulse Resp B/P (MAP) Pulse Ox O2 Delivery O2 Flow Rate FiO2 09/05/20 06:00 97.5 100 16 138/88 (105) 100 09/04/20 16:21 Room Air Current Medications Current Medications Medications (Trade) Dose Ordered Sig/Jovani Route PRN Reason Start Time Stop Time Status Last Admin Dose Admin Acetaminophen (Tylenol Tab) 650 mg Q6HP PRN PO HEADACHE or DISCOMFORT 08/24/20 11:45 08/26/20 13:16 Al Hydrox/Mg Hydrox/Simethicone (Mylanta) 30 ml Q4HP PRN PO HEARTBURN/INDIGESTION 08/24/20 11:45 Aripiprazole (AbiLIFY) 5 mg BID PO 08/24/20 09:00 09/02/20 12:53 DC 09/02/20 08:07 Aripiprazole (AbiLIFY) 10 mg BID PO 09/02/20 21:00 09/05/20 09:23 Diphenhydramine HCl (Benadryl) 50 mg STAT STAT IM 08/30/20 09:16 08/30/20 09:20 DC 08/30/20 09:38 Diphenhydramine HCl (Benadryl) 50 mg STAT STAT IM 08/30/20 09:57 08/30/20 09:58 DC 08/30/20 10:15 Diphenhydramine HCl (Benadryl) 50 mg STAT STAT IM 08/24/20 21:23 08/24/20 21:25 DC 08/24/20 21:35 Divalproex Sodium (Depakote) 125 mg QHS PO 09/04/20 21:00 09/05/20 22:00 Divalproex Sodium (Depakote) 250 mg BID PO 09/06/20 09:00 Haloperidol (Haldol) 5 mg STAT STAT IM 09/01/20 17:04 09/01/20 17:06 DC 09/01/20 17:17 Haloperidol (Haldol) 5 mg STAT STAT IM 09/02/20 19:30 09/02/20 19:33 DC 09/02/20 19:36 Haloperidol (Haldol) 5 mg STAT STAT IM 09/02/20 20:11 09/02/20 20:12 DC 09/02/20 20:21 Haloperidol (Haldol) 10 mg STAT STAT IM 08/30/20 09:16 08/30/20 09:20 DC 08/30/20 09:38 Haloperidol (Haldol) 10 mg STAT STAT IM 08/31/20 11:17 08/31/20 11:21 DC 08/31/20 11:31 Haloperidol (Haldol) 10 mg STAT STAT IM 08/24/20 21:23 08/24/20 21:25 DC 08/24/20 21:35 Lorazepam (Ativan) 1 mg STAT STAT IM 08/30/20 09:58 08/30/20 10:00 DC 08/30/20 10:15 Lorazepam (Ativan) 1 mg STAT STAT IM 09/01/20 17:04 09/01/20 17:06 DC 09/01/20 17:17 Lorazepam (Ativan) 1 mg STAT STAT IM 09/02/20 19:30 09/02/20 19:33 DC 09/02/20 19:36 Lorazepam (Ativan) 2 mg STAT STAT IM 08/30/20 09:16 08/30/20 09:20 DC 08/30/20 09:38 Lorazepam (Ativan) 2 mg STAT STAT IM 08/31/20 11:17 08/31/20 11:21 DC 08/31/20 11:31 Lorazepam (Ativan) 2 mg STAT STAT IM 08/24/20 21:23 08/24/20 21:25 DC 08/24/20 21:35 Magnesium Hydroxide (Milk Of Magnesia) 30 ml DAILYPRN PRN PO CONSTIPATION 08/24/20 11:45 Nicotine (Nicorette) 2 mg Q6HP PRN PO NICOTINE WITHDRAWAL 08/31/20 20:45 09/04/20 20:48 Non-Formulary Medication ( See Comment Field Below ) OFFER INVEGA SUSTE... DAILY XX 08/31/20 09:00 09/01/20 06:59 DC Olanzapine (ZyPREXA ZYDIS) 5 mg Q4HP PRN PO AGITATION 08/24/20 11:45 08/30/20 21:02 Risperidone (RisperDAL) 1 mg DAILY PO 08/25/20 09:00 08/29/20 12:56 DC 08/29/20 09:07 Trazodone HCl (Desyrel) 50 mg QHSP PRN PO INSOMNIA 08/24/20 11:45 09/04/20 21:57 Allergies Coded Allergies: No Known Allergies (Unverified , 12/18/16) LEDY FRIEDMAN NP Sep 05, 2020 11:50
[2020-09-05] MEDS: OLANZapine ORAL DISINTEGRATING TAB 5MG PO PRN (17:14)
[2020-09-05 17:48] VITALS: BP 164/92
[2020-09-05 19:50] VITALS: BP 120/61
[2020-09-05 21:35] LABS: RSV AMPLIFICATION NEGATIVE (NEGATIVE)
[2020-09-05] MEDS: DIVALPROEX 125 MG TAB PO SCH (21:59)
[2020-09-05] MEDS: traZODone 50 MG TAB PO PRN (22:53)
[2020-09-06] MEDS ORDERED: ACET-897 PO (00:32)
[2020-09-06] MEDS ORDERED: ARIP1TAB PO (00:32)
[2020-09-06] MEDS ORDERED: C 50TAB PO (00:32)
[2020-09-06] MEDS ORDERED: VITMTA PO (00:32)
[2020-09-06] MEDS ORDERED: DIVALPROEX 250 MG TAB PO SCH (09:00)
[2020-09-08] MEDS ORDERED: DIVALPROEX 250 MG TAB PO SCH (09:00)
--- NOTE | 2020-10-21 12:27 | MHDSPDOC ---
[facility] Discharge Summary Discharge Summary DATE OF ADMISSION: Aug 24, 2020 at 11:55 DATE OF DISCHARGE: Sep 05, 2020 at 23:30 This is a late discharge summary for a patient who left [facility] on 09/05/20 at 2330 for a cardiac issue. She was seen at 11:15 AM by the provider and was tachycardic but asymptomatic. She was seen by a hospitalist who admitted her to medical for monitoring. DISCHARGE DIAGNOSES: 1. Bipolar I Disorder, Manic Episode 2. Social anxiety. 3. Posttraumatic stress disorder symptoms by history. 4. Cannabis use disorder, moderate 5. Alcohol use disorder, mild (binges) 6. Hallucinogen use disorder, mild. 7. Stimulant use disorder, mild 8. Rule out borderline personality disorder. REASON FOR ADMISSION: Patient admitted for Exacerbation of Bipolar Symptoms. Patient is a 19 year old Single, Domiciled -[place] Female who was a direct admit from Medical for Rhabdomyolysis. It was reported that patient was psychotic due to LSD ingestion. This 19-year-old woman was transferred from the medical service where she had been admitted for severe rhabdomyolysis. She was disorganized, scattered and delusional on medicine and admitted to psychiatry f or these symptoms. CONSULTANTS INVOLVED: See Medical H + P by hospitalist. TREATMENT AND PROGRESS ON THE UNIT: Patient was admitted to the [facility] on a 9.39 legal status he was afforded the following treatment modalities: 1) Individual Therapy 2) Group Therapy 3) Medication Management 4) Milieu Therapy 5) Safe Environment HOSPITAL COURSE: Patient was admitted to the unit on a legal 9.39 legal status from a medical unit where she had been initially admitted for Rhabdomyolysis.. She had been having poor improvement in her mood and affect. Was quite delusional and was on 1:1 observations. She was admitted to medical during the night. In the earlier evaluation, patient was still psychotic and was not improving. The plan of action was to continue all psychiatric medications [facility] Please see Psychiatric Progress Note from earlier in the day for patient's presentation and history. DISCHARGE ASSESSMENT: Patient was alert and oriented at the time that she was seen earlier in the day. I do not have a discharge assessment at the time that the patient was transferred to the unit as she was not evaluated by this provider at the time of her transfer to the medical floor. According to nurse's notes, patient was alert and oriented, having tachycardia with no other complaints. She was evaluated by a Hospitalist who ordered her to be transferred to a medical unit for monitoring. MENTAL STATUS EXAMINATION ON DISCHARGE: Patient is a 19 year old Single, Domiciled -[place] Female who was a direct admit from Medical for Rhabdomyolysis. Patient admitted for Exacerbation of Bipolar Symptoms and possible psychosis due to substance use. Speech: normal rate tone and volume Language skills are intact Thought processes including: increased linear thinking Thought content: denies depression, anxiety and SI/HI. Abstract reasoning, and computation: fair Description of associations: Denies, she makes grandiose statements, states "I need to get back to school and I want to go to nursing school, I need this for myself because that's what is expected of me." Description of abnormal or psychotic thoughts: patient denies, none observed Judgment: improving Insight: improving Orientation: Alert and oriented to person place and time Recent and remote memory: Fair Attention span and concentration: improving Language: Fair Fund of knowledge: Average Mood: "I am good" Affect: flat, congruent to mood The above mental status exam was based on her earlier assessment which was nearly 12 hours before this discharge summary. MEDICATIONS ON DISCHARGE: See medication reconciliation PLAN/FOLLOWUP ARRANGEMENTS: See Hospitalist orders and recommendations The amount of time spent in the coordination of care for this patient was approximately 5 minutes. Patient was discharged during the night, was not seen by the Psychiatric Nurse Practitioner at the time that she was admitted to medical. ETOH/Disorder Med Rx ETOH/DRUG DISORDER RX: N/A (Patient is being admitted to medical unit) Medications Scheduled Aripiprazole (Aripiprazole) 30 Mg Tablet, 1 TAB PO DAILY for paychosis, #7 Take 1/2 tablet twice daily Ascorbic Acid (Vitamin C) 500 Mg Tablet, 500 MG PO DAILY, (Reported) Divalproex Sodium (Depakote) 500 Mg Tablet.dr, 500 MG PO BID for mood stabalizer, #14 Multivitamins (Thera M Plus Tablet) 1 Each Tablet, 1 TAB PO DAILY, (Reported) Paliperidone Palmitate (Invega Sustenna) 234 Mg/1.5 Ml Syringe, 1 SYRINGE IM Q30D for psychosis, #1 Invega sustena due 09/25/20 Allergies Coded Allergies: No Known Allergies (Unverified , 12/18/16) LEDY FRIEDMAN ENGINEERING SCIENTIST Oct 21, 2020 12:23
== END 2020-09-05 23:30 | disposition home or self-care (01) | DRG 885 ==
LOC: M PSY 11:55
PROVIDERS: ADMIT Psychiatry & Neurology Psychiatry; ATTEND Psychiatry & Neurology Psychiatry
DX: F31.2 Bipolar disorder, current episode manic severe with psychotic features (principal); F43.10 Post-traumatic stress disorder, unspecified; F12.90 Cannabis use, unspecified, uncomplicated; F10.10 Alcohol abuse, uncomplicated; F15.90 Other stimulant use, unspecified, uncomplicated; F16.90 Hallucinogen use, unspecified, uncomplicated; F60.3 Borderline personality disorder; Z79.899 Other long term (current) drug therapy

== ENCOUNTER 2020-09-05 21:56 | Observation (INO) | payer OTHER ==
[~2020-09-05] VITALS: Ht 157.5 cm; Wt 62.5 kg
[~2020-09-05 21:56] MED LIST changes: +DIVALPROEX 125 MG TAB PO SCH
--- NOTE | 2020-09-05 22:12 | HPEPDOC ---
[facility] Medical History & Physical Date of Admission Sep 05, 2020 Date of Service: Sep 05, 2020 Attending Physician: KAY GREGG MD History and Physical TIME OF SERVICE: 7:40 PM CHIEF COMPLAINT: Staff member concerned about tachycardia HISTORY OF PRESENT ILLNESS: This 19 yr old female with history of bipolar disorder presented to [facility] on August 20 with agitation and psychosis, after LSD ingestion, and was diagnosed with rhabdomyolysis. After short stay on the medical floor, on August 24 she was transferred to [facility] for management of an unspecified psychotic disorder. This evening I was called by the daytime nurse who noted that the patient had been tachycardic most of the day with a heart rate ranging from 68 up to 160s. At the time of my evaluation, the patient denied having any chest pain, shortness of breath, cough, abdominal pain, back pain, pain with urination, cuts or abrasions on her skin. Her only complaint was of mild to right wrist pain. Per discussion with [facility] staff, the patient has been eating well but added that she has been walking around the hallways a lot. REVIEW OF SYSTEMS: 12 point review of systems negative except as listed in HPI PAST MEDICAL/ SURGICAL HISTORY: Bipolar 1 disorder with barrett Social anxiety disorder PTSD SOCIAL HISTORY: She has a history of binge drinking, cannabis use, and hallucinogen use. FAMILY HISTORY: n/a ALLERGIES: Please see below. HOME MEDICATIONS: Please see below. PHYSICAL EXAMINATION: VITAL SIGNS: Temperature 100.6 / blood pressure 120/61 / respiratory rate 20 / O2 sats 98% on room air / heart rate 123 GEN: well-nourished / well developed/ NAD INTEGUMENT: not flushed/ not jaundice /she has multiple tattoos/she has a flat well healed scar at the left frontal aspect of her skull that is partially h idden by her hair / She has 2 areas of ecchymosis on the right superior aspect of her duties nikita and left lateral hip HEENT: extraocular movements are intact./Nose and mouth are covered by mask CVS: tachycardic/NMRG/ radial pulses intact / no lower extremity edema LUNGS: able to speak full sentences without stopping to take a breath / no coughing / lungs are clear to auscultation bilaterally on room air ABDOMEN: Contour (flat ) / soft & not tender with palpation MSK/EXTREMITIES: NCAT / range of motion intact in all 4 extremities / gait normal NEURO: CN 2-12 are grossly intact / speech is not dysarthric PSYCH: alert and oriented to person place and time/ able to understand and follow all commands LABORATORY DATA: n/a IMAGING: n/a MICROBIOLOGY: Please see below. ASSESSMENT: is a 19-year-old with a history of bipolar disorder and PTSD was admitted to [facility] for management of an unspecified psychotic disorder; I was asked to evaluate the patient because is noted to be tachycardic with a heart rate as high as the 160s. She has SIRS, pending rapid COVID testing, she'll be transferred to the medical floor for observation and telemetry monitoring. PLAN: 1. SIRS SIRS criteria include tachycardia, and hyperthermia Possibly reactive versus secondary to occult infection. Her TSH was 0.54 on Aug 20 Her PERC Rule Score = 1 point = can't r/u PE Plan: Transfer to medical floor /telemetry / f/u EKG/ f/u WBC, K, troponin,d- dimer, lactic acid , BNP, Ca++, Mag & blood cx / pending orthostats may start IV fluids / will not order UA or chest xray because she doesn't have any upper respiratory or lower genitourinary symptoms 2. Right Wrist Pain Plan: acetaminophen PRN 3. Psychosis / Bipolar Disorder Plan: resume meds / 1:1 sitter DVT PROPHYLAXIS: SCDs DISPOSITION: home after more than 2 midnight's stay LATE ENTRY Blood work 09/06/20 00:20 d-dimer 1953 Plan: f/u CTA to r/o PE /KCl 20meq Home Medications Scheduled Aripiprazole (Aripiprazole) 10 Mg Tablet, 10 MG PO QHS Ascorbic Acid (Vitamin C) 500 Mg Tablet, 500 MG PO DAILY Multivitamins (Thera M Plus Tablet) 1 Each Tablet, 1 TAB PO DAILY Scheduled PRN Acetaminophen (Tylenol Extra Strength) 500 Mg Tablet, 1,000 MG PO Q6H PRN for PAIN / FEVER Allergies Coded Allergies: No Known Allergies (Unverified , 12/18/16) A-FIB/CHADSVASC A-FIB History Current/History of A-Fib/PAF?: No Current PO Anticoag Therapy: No KAY GREGG MD Sep 05, 2020 22:12
[2020-09-05] MEDS ORDERED: MAALOX 30 ML SUSP *UDC PO PRN (22:15)
[2020-09-05] MEDS ORDERED: ACETAMINOPHEN 650MG ER TAB (TYLENOL ARTHRITIS) PO PRN (22:15)
[2020-09-05 23:30] VITALS: BP 126/85
[2020-09-06] MEDS ORDERED: VITMTA PO (00:32)
[2020-09-06] MEDS ORDERED: ACET-897 PO (00:32)
[2020-09-06] MEDS ORDERED: C 50TAB PO (00:32)
[2020-09-06] MEDS ORDERED: ARIP1TAB PO (00:32)
[2020-09-06 00:49] LABS: HEMATOCRIT 38.4 % (36.0-47.0); HEMOGLOBIN 12.5 g/dl (12.0-15.5); MEAN CORPUSCULAR HGB CONC 32.6 g/dl (32.0-36.5); MEAN CORPUSCULAR VOLUME 95.3 fl (80.0-96.0); PLATELET COUNT, AUTOMATED 309 10^3/uL (150-450); RED BLOOD COUNT 4.03 10^6/uL (4.00-5.40); WHITE BLOOD COUNT 8.1 10^3/uL (4.0-10.0)
[2020-09-06] MEDS ORDERED: ISOVUE-370 76% 100ML VIAL As Ordered ONE (01:28)
[2020-09-06 01:36] LABS: ALBUMIN 3.9 GM/DL (3.2-5.2); ALT/SGPT 19 U/L (12-78); BILIRUBIN,TOTAL 0.3 MG/DL (0.2-1.0); BLOOD UREA NITROGEN 6 MG/DL (7-18); CALCIUM LEVEL 9.1 MG/DL (8.5-10.1); CARBON DIOXIDE LEVEL 26 MEQ/L (21-32); CHLORIDE LEVEL 104 MEQ/L (98-107); CREATININE FOR GFR 0.73 MG/DL (0.55-1.30); GLOMERULAR FILTRATION RATE > 60.0 (>60); GLUCOSE, FASTING 85 MG/DL (70-100); MAGNESIUM LEVEL 2.2 MG/DL (1.8-2.4); NT-PRO BNP 9 PG/ML (<125); POTASSIUM SERUM 3.3 MEQ/L (3.5-5.1); SODIUM LEVEL 137 MEQ/L (136-145); TOTAL PROTEIN 7.7 GM/DL (6.4-8.2); TROPONIN I < 0.02 NG/ML (< 0.10)
--- NOTE | 2020-09-06 02:52 | REPVR ---
PROCEDURE INFORMATION: Exam: CT Angiography Chest With Contrast Exam date and time: 09/06/2020 1:19 AM Age: 19 years old Clinical indication: Other: Dimer elevated; Additional info: Tachycardia, fever and elevated d-dimer R/O pe TECHNIQUE: Imaging protocol: Computed tomographic angiography of the chest with intravenous contrast. 3D rendering (Not supervised by radiologist): MIP and/or 3D reconstructed images were created by the technologist. Radiation optimization: All CT scans at this facility use at least one of these dose optimization techniques: automated exposure control; mA and/or kV adjustment per patient size (includes targeted exams where dose is matched to clinical indication); or iterative reconstruction. Contrast material: ISO; Contrast volume: 75 ml; Contrast route: INTRAVENOUS (IV); COMPARISON: CR PORTABLE CHEST X-RAY 08/20/2020 1:48 AM FINDINGS: Pulmonary arteries: The main pulmonary artery measures 23 mm. No pulmonary embolism is identified. Aorta: The ascending thoracic aorta measures 24 mm. Lungs: Minimal nodular infiltrate in the superior segment of the left lower lobe. Pleural space: Unremarkable. No pneumothorax. No pleural effusion. Heart: Unremarkable. No cardiomegaly. No pericardial effusion. Mediastinal space: There is soft tissue conforming to the anterior mediastinum consistent with residual thymic tissue. Lymph nodes: Unremarkable. No enlarged lymph nodes. Gallbladder and bile ducts: The gallbladder is contracted with no stones. Bones/joints: Slight anterior wedge configuration of T11 and T12 which appear to be chronic and likely developmental. Soft tissues: Unremarkable. IMPRESSION: 1. Minimal nodular infiltrate in the superior segment of the left lower lobe. 2. Otherwise negative CTA chest. No pulmonary embolism is identified. Electronically signed by: Cory Joaquin On 09/06/2020 02:52:14 AM
[2020-09-06] MEDS ORDERED: NICOTINE POLACRILEX 2 MG GUM PO PRN (04:00)
[2020-09-06] MEDS: ARIPiprazole 10 MG TAB PO SCH ×3 (04:03→08:26)
[2020-09-06] MEDS ORDERED: POTASSIUM CHLORIDE 10 MEQ SR TABLET PO ONE (05:45)
[2020-09-06 06:00] VITALS: BP 126/66
--- NOTE | 2020-09-06 08:15 | ECGEPIP ---
[facility] Test Date: 2020-09-06 Pat Name: MAEGAN PEREZ Department: Room: [place] [address] Gender: Female Manager Demand: BECKY : 2000 Requested By: KAY GREGG Order Number: [id number] Reading MD: Tamar Bello Measurements Intervals [place] Rate: 90 P: 151 HI: 123 QRS: 108 QRSD: 86 T: 40 QT: 345 QTc: 424 Interpretive Statements ECTOPIC ATRIAL RHYTHM SEEN PREVIOUS RIGHT AXIS DEVIATION LPHB NEW NONSPECIFIC STT ABN MORE MARKED C/W 08/20/20 Electronically Signed on 09-06-2020 8:15:02 EST by Tamar Bello
[2020-09-06] MEDS: BENZOCAINE 10% 9GM TUBE (ANBESOL) MT SCH ×2 (08:26→12:12)
--- NOTE | 2020-09-06 08:43 | ECGEPIP ---
[facility] Test Date: 2020-09-06 Pat Name: MAEGAN PEREZ Department: Room: [place] [address] Gender: Female Dental Therapist: : 2000 Requested By: CARYN LISA Order Number: [id number] Reading MD: Tamar Bello Measurements Intervals [place] Rate: 87 P: 63 SC: 118 QRS: 69 QRSD: 83 T: 30 QT: 335 QTc: 404 Interpretive Statements SINUS RHYTHM WITH SINUS ARRHYTHMIA// WITH SHORT SC INTERVAL-NEW PRIOR WITH RIGHT AXIS AND ECTOPIC ATRIAL RHYTHM NSSTTWA ABN C/W 09/06/20 EARLIER Electronically Signed on 09-06-2020 8:42:54 EST by Tamar Bello
[2020-09-06] MEDS ORDERED: OLANZapine 5 MG TAB PO PRN (09:00)
[2020-09-06] MEDS ORDERED: MULTIVITAMINS/MINERALS THERAP 1 TAB PO SCH (09:00)
[2020-09-06] MEDS ORDERED: ASCORBIC ACID 500 MG TAB PO SCH (09:00)
[2020-09-06 10:23] LABS: BASO % 0.5 % (0.0-1.0); EOS # 0.1 10^3/uL (0.0-0.5); EOS % 1.8 % (0.0-3.0); HEMOGLOBIN 11.9 g/dl (12.0-15.5); LYMPH # 1.5 10^3/uL (1.5-5.0); LYMPH % 27.1 % (24.0-44.0); MEAN CORPUSCULAR HEMOGLOBIN 31.5 pg (27.0-33.0); MEAN CORPUSCULAR HGB CONC 33.1 g/dl (32.0-36.5); MEAN CORPUSCULAR VOLUME 95.2 fl (80.0-96.0); MONO # 0.6 10^3/uL (0.0-0.8); MONO % 10.1 % (0.0-5.0); NEUTROPHILS # 3.3 10^3/uL (1.5-8.5); NEUTROPHILS % 60.3 % (36.0-66.0); PLATELET COUNT, AUTOMATED 294 10^3/uL (150-450); RED BLOOD COUNT 3.78 10^6/uL (4.00-5.40); WHITE BLOOD COUNT 5.5 10^3/uL (4.0-10.0)
[2020-09-06 10:58] LABS: ALBUMIN 3.5 GM/DL (3.2-5.2); ALT/SGPT 20 U/L (12-78); BILIRUBIN,TOTAL 0.3 MG/DL (0.2-1.0); BLOOD UREA NITROGEN 4 MG/DL (7-18); CALCIUM LEVEL 8.9 MG/DL (8.5-10.1); CARBON DIOXIDE LEVEL 27 MEQ/L (21-32); CHLORIDE LEVEL 106 MEQ/L (98-107); CREATININE FOR GFR 0.88 MG/DL (0.55-1.30); GLOMERULAR FILTRATION RATE > 60.0 (>60); GLUCOSE, FASTING 96 MG/DL (70-100); POTASSIUM SERUM 4.1 MEQ/L (3.5-5.1); SODIUM LEVEL 140 MEQ/L (136-145); TOTAL PROTEIN 6.9 GM/DL (6.4-8.2)
[2020-09-06 10:59] LABS: FREE THYROXINE INDEX 2.7 % (1.3-4.8); THYROID STIMULATING HORMONE 0.767 uIU/ML (0.358-3.740); THYROXINE (T4) 7.4 UG/DL (4.5-12.0)
[2020-09-06] MEDS ORDERED: NS 1,000 ML IV ONE (12:00)
--- NOTE | 2020-09-06 13:32 | IPNPDOC ---
Text Note Date of Service The patient was seen on 09/06/20. NOTE Subjective: Patient stated that she feels fine, no any complaints Objective: GENERAL APPEARANCE: NAD HEENT: no scleral icterus, no JVD, EOMI CARDIOVASCULAR: S1S2 LUNGS: CTA ABDOMEN: soft & not tender w palpitation MUSCULOSKELETAL: no cyanosis, no swelling INTEGUMENT: no generalized palor NEUROLOGICAL: cranial nerve function from 2-12 intact intact, follows commands, speech not dysarthric Assessment and plan Patient is a 19-year-old with a history of bipolar disorder and PTSD was admitted to [facility] for management of an unspecified psychotic disorder; I was asked to evaluate the patient because is noted to be tachycardic with a heart rate as high as the 160s. She has SIRS, pending rapid COVID testing, she'll be transferred to the medical floor for observation and telemetry monitoring. SIRS Resolved Thyroid panel with in normal limit Tachycardia Resolved, most likely secondary to agitation due to underlying psychiatric disorder Unlikely due to infection, patient doesn't have leukocytosis, afebrile, negative procalcitonin EKG showed normal sinus rhythm Thyroid panel negative Continue monitor electrolytes Right Wrist Pain acetaminophen PRN Psychosis / Bipolar Disorder resume meds / 1:1 sitter VS,Fishbone, I+O VS, Fishbone, I+O Laboratory Tests 09/06/20 00:20 09/06/20 09:56 Vital Signs Date Time Temp Pulse Resp B/P (MAP) Pulse Ox O2 Delivery O2 Flow Rate FiO2 09/06/20 06:00 97.2 101 17 126/66 (86) 91 Room Air I&O- Last 24 Hours up to 6 AM 09/06/20 06:00 Intake Total 550 ml Balance 550 ml CARYN LISA DO Sep 06, 2020 13:32
--- NOTE | 2020-09-06 16:21 | DS.PDOC ---
Discharge Summary General Date of Admission Sep 05, 2020 at 23:30 Date of Discharge 09/06/20 Discharge Summary PROCEDURES PERFORMED DURING STAY: [None]. ADMITTING DIAGNOSES: SIRS Tachycardia Right Wrist Pain Psychosis / Bipolar Disorder DISCHARGE DIAGNOSES: SIRS Tachycardia Right Wrist Pain Psychosis / Bipolar Disorder COMPLICATIONS/CHIEF COMPLAINT: SIRS. HISTORY OF PRESENT ILLNESS:Patient is a 19-year-old with a history of bipolar disorder and PTSD [facility] of an unspecified psychotic disorder; I was asked to evaluate the patient because is noted to be tachycardic with a heart rate as high as the 160s. She has SIRS, pending rapid COVID testing, she'll be transferred to the medical floor for observation and t elemetry monitoring. HOSPITAL COURSE: During hospital stay the following issue addressed SIRS Resolved Thyroid panel with in normal limit Tachycardia Resolved, most likely secondary to agitation due to underlying psychiatric disorder Unlikely due to infection, patient doesn't have leukocytosis, afebrile, negative procalcitonin EKG showed normal sinus rhythm Thyroid panel negative Continue monitor electrolytes Right Wrist Pain acetaminophen PRN Psychosis / Bipolar Disorder resume meds / 1:1 sitter DISCHARGE MEDICATIONS: Please see below. ALLERGIES: Please see below. PHYSICAL EXAMINATION ON DISCHARGE: VITAL SIGNS: Please see below. GENERAL APPEARANCE: NAD HEENT: no scleral icterus, no JVD, EOMI CARDIOVASCULAR: S1S2 LUNGS: CTA ABDOMEN: soft & not tender w palpitation MUSCULOSKELETAL: no cyanosis, no swelling INTEGUMENT: no generalized palor NEUROLOGICAL: cranial nerve function from 2-12 intact intact, follows commands, speech not dysarthric LABORATORY DATA: Please see below. PROGNOSIS: Fair ACTIVITY: [As tolerated]. DIET: Regular DISCHARGE PLAN: Transfer to mental health unit ITEMS TO FOLLOWUP ON ON OUTPATIENT: Follow-up with psychiatrist DISCHARGE CONDITION: [Stable]. TIME SPENT ON DISCHARGE: Greater than 20 minutes. Vital Signs/I&Os Vital Signs Date Time Temp Pulse Resp B/P (MAP) Pulse Ox O2 Delivery O2 Flow Rate FiO2 09/06/20 06:00 97.2 101 17 126/66 (86) 91 Room Air I&O- Last 24 Hours up to 6 AM 09/06/20 06:00 Intake Total 550 ml Balance 550 ml Laboratory Data Labs 24H Laboratory Tests 2 09/06/20 00:20: Nucleated Red Blood Cells % (auto) 0.0, D-Dimer, Quantitative 1953.29H, Anion Gap 7L, Glomerular Filtration Rate > 60.0, Lactic Acid Level 1.1, Calcium Level 9.1, Magnesium Level 2.2, Total Bilirubin 0.3, Aspartate Amino Transf (AST/SGOT) 16, Alanine Aminotransferase (ALT/SGPT) 19, Alkaline Phosphatase 65, Troponin I < 0.02, XX-Rug-R-Type Natriuretic Peptide 9, Total Protein 7.7, Albumin 3.9, Albumin/Globulin Ratio 1.0L 09/06/20 09:56: Nucleated Red Blood Cells % (auto) 0.0, Anion Gap 7L, Glomerular Filtration Rate > 60.0, Lactic Acid Level 2.4*H, Calcium Level 8.9, Total Bilirubin 0.3, Aspartate Amino Transf (AST/SGOT) 11, Alanine Aminotransferase (ALT/SGPT) 20, Alkaline Phosphatase 58, Total Protein 6.9, Albumin 3.5, Albumin/Globulin Ratio 1.0L, Immature Granulocyte % (Auto) 0.2, Neutrophils (%) (Auto) 60.3, Lym phocytes (%) (Auto) 27.1, Monocytes (%) (Auto) 10.1H, Eosinophils (%) (Auto) 1.8, Basophils (%) (Auto) 0.5, Neutrophils # (Auto) 3.3, Lymphocytes # (Auto) 1.5, Monocytes # (Auto) 0.6, Eosinophils # (Auto) 0.1, Basophils # (Auto) 0.0, Procalcitonin <0.05, Thyroid Stimulating Hormone (TSH) 0.767, Free Thyroxine Index 2.7, Thyroxine (T4) 7.4, Triiodothyronine (T3) Uptake 37 09/06/20 13:31: Coronavirus (COVID-19)(PCR) NEGATIVE 09/06/20 14:00: Lactic Acid Followup at 4 Hours 2.0 CBC/BMP Laboratory Tests 09/06/20 00:20 09/06/20 09:56 Microbiology Microbiology 09/06/20 Blood Culture, Received Pending Discharge Medications Scheduled Aripiprazole (Aripiprazole) 10 Mg Tablet, 10 MG PO QHS, (Reported) Ascorbic Acid (Vitamin C) 500 Mg Tablet, 500 MG PO DAILY, (Reported) Multivitamins (Thera M Plus Tablet) 1 Each Tablet, 1 TAB PO DAILY, (Reported) Scheduled PRN Acetaminophen (Tylenol Extra Strength) 500 Mg Tablet, 1,000 MG PO Q6H PRN for PAIN / FEVER, (Reported) Allergies Coded Allergies: No Known Allergies (Unverified , 12/18/16) CARYN LISA DO Sep 06, 2020 16:21
[2020-09-06] MEDS ORDERED: ARIPiprazole 10 MG TAB PO SCH (21:00)
[2020-09-06] MEDS ORDERED: traZODone 50 MG TAB PO PRN (21:00)
[2020-09-07] MEDS ORDERED: INFLUENZA QUADRIVALENT PF VACCINE 0.5ML SYRINGE IM ONE (09:00)
== END 2020-09-06 16:38 ==
LOC: INTOOBSV 23:30 → M MSPAV 23:30
PROVIDERS: ADMIT Internal Medicine; ATTEND Internal Medicine
DX: R00.0 Tachycardia, unspecified (principal); F31.5 Bipolar disorder, current episode depressed, severe, with psychotic features; R65.10 Systemic inflammatory response syndrome (SIRS) of non-infectious origin without acute organ dysfunction; M25.531 Pain in right wrist; F43.10 Post-traumatic stress disorder, unspecified; Z79.899 Other long term (current) drug therapy
CPT/HCPCS: 36415; 71275; 80053; 83605; 83735; 83880; 84145; 84436; 84443; 84479; 84484; 85025; 85027; 85379; 87040; 93005; 96374; Q9967; U0002

== ENCOUNTER 2020-09-06 13:55 | Inpatient (IN) | payer OTHER ==
[~2020-09-06] VITALS: Ht 157.5 cm; Wt 62.3 kg
[~2020-09-06 13:55] MED LIST changes: +ACET-897 PO; +C 50TAB PO; -DIVALPROEX 125 MG TAB PO SCH; +VITMTA PO
[2020-09-06] MEDS ORDERED: MAALOX 30 ML SUSP *UDC PO PRN (14:30)
[2020-09-06] MEDS ORDERED: MOM 30ML SUSPENSION UDC PO PRN (14:30)
[2020-09-06] MEDS: BENZOCAINE 10% 9GM TUBE (ANBESOL) MT SCH ×2 (17:00→20:31)
[2020-09-06] MEDS: OLANZapine 5 MG TAB PO PRN (20:29)
[2020-09-06] MEDS: ARIPiprazole 10 MG TAB PO SCH (20:29)
[2020-09-06] MEDS: ACETAMINOPHEN TAB 650MG DOSE (2X325MG) PO PRN (20:29)
[2020-09-06] MEDS ORDERED: DIVALPROEX 125 MG TAB PO SCH (21:00)
[2020-09-07] MEDS: NICOTINE POLACRILEX 2 MG GUM PO PRN (01:58)
[2020-09-07] MEDS: ACETAMINOPHEN TAB 650MG DOSE (2X325MG) PO PRN (05:30)
[2020-09-07 06:27] VITALS: BP 137/78
[2020-09-07] MEDS: MULTIVITAMINS/MINERALS THERAP 1 TAB PO SCH (08:49)
[2020-09-07] MEDS: ARIPiprazole 10 MG TAB PO SCH ×2 (08:50→21:00)
[2020-09-07] MEDS: BENZOCAINE 10% 9GM TUBE (ANBESOL) MT SCH ×4 (08:50→21:00)
[2020-09-07] MEDS: ASCORBIC ACID 500 MG TAB PO SCH (08:50)
[2020-09-07] MEDS: DIVALPROEX 500 MG TAB PO SCH ×2 (13:11→21:00)
[2020-09-07] MEDS: OLANZapine 5 MG TAB PO PRN (13:11)
--- NOTE | 2020-09-07 14:13 | HPEPDOC ---
[facility] Medical History & Physical Date of Admission Sep 07, 2020 Date of Service: Sep 07, 2020 History and Physical CHIEF COMPLAINT: Medical H&P for [facility] HISTORY OF PRESENT ILLNESS: 19 yr old W with a history of bipolar disorder and PSUD who presented to [facility] on August 20 with agitation and psychosis, after LSD ingestion, and was diagnosed with rhabdomyolysis. She was admitted to medicine for hydration and on 08/24 was discharged to [facility] for management of psychosis and manic behavior. [facility] course was c/b persistent tachycardia for which we was briefly transferred back to medicine but was found to have no evidence of infection, no dysrhythmias on telemetry and normal thyroids function tests. She was therefore discharged back to inpatient psychiatry with tachycardia determined to be 2/2 ongoing unspecified hyperactive psychosis in the setting of recent illicit stimulant ingestion. Today, she is hypersexual with some singing and suggestive dancing, but otherwise pleasant, cooperative, but continues to be restless with pressured speech and having massive flight of ideas. She denies any chest pain, sensation of palpitations, shortness of breath or physical complaints in general. REVIEW OF SYSTEMS: 12 point review of systems negative except as listed in HPI PAST MEDICAL/ SURGICAL HISTORY: Bipolar 1 disorder with barrett Social anxiety disorder PTSD PSUD with various substances SOCIAL HISTORY: She has a history of binge drinking, cannabis use, and hallucinogen use. FAMILY HISTORY: "My father has issues" ALLERGIES: Please see below. HOME MEDICATIONS: Please see below. PHYSICAL EXAMINATION: VITAL SIGNS: see below GEN: well-nourished, well developed, NAD INTEGUMENT: Has multiple tattoos, cheilosis HEENT: extraocular movements are intact. NCAT. MMM. Has cheilosis CVS: Tachycardic, otherwise regular rhythm, radial pulses intact, no lower extremity edema LUNGS: Lungs are clear to auscultation bilaterally, breathing comfortably on room air ABDOMEN: Normoactive bowel sounds, soft & not tender with palpation MSK/EXTREMITIES: Normal range of motion intact in all 4 extremities, gait normal NEURO: CN 2-12 are grossly intact, speech is not dysarthric, normal gait PSYCH: AOx3, however restless, pressured speech, impulse, having flight of ideas, some disorganized thought process, tangential. Is able to understand and follow all commands and requiring frequent redirection. LABORATORY DATA: n/a IMAGING: n/a MICROBIOLOGY: Please see below. ASSESSMENT: 19-year-old with a history of bipolar disorder and PTSD was [facility] for management of an unspecified psychotic disorder i/s/o recent illicit drugs ingestion. PLAN: Psychosis / Bipolar Disorder -Plan per primary psych team Tachycardia: -infectious and endocrine workup was negative -no symptoms -most likely 2/2 recent illicit stimulants and/or psychosis with hyperactivity DVT PROPHYLAXIS: ambulatory Medicine will sign off at this time. Vital Signs Vital Signs Date Time Temp Pulse Resp B/P (MAP) Pulse Ox O2 Delivery O2 Flow Rate FiO2 09/07/20 06:27 97.7 61 18 137/78 (97) 100 Home Medications Scheduled Aripiprazole (Aripiprazole) 10 Mg Tablet, 10 MG PO QHS Ascorbic Acid (Vitamin C) 500 Mg Tablet, 500 MG PO DAILY Multivitamins (Thera M Plus Tablet) 1 Each Tablet, 1 TAB PO DAILY Scheduled PRN Acetaminophen (Tylenol Extra Strength) 500 Mg Tablet, 1,000 MG PO Q6H PRN for PAIN / FEVER Allergies Coded Allergies: No Known Allergies (Unverified , 12/18/16) A-FIB/CHADSVASC A-FIB History Current/History of A-Fib/PAF?: No Current PO Anticoag Therapy: No Age/Risk Factor Scoring CHADSVASC: CHADSVASC Response (Comments) Value Age Risk Factor Age < 65 years old 0 Gender Risk Factor Female 1 Hx of CHF No 0 Hx of HTN No 0 Hx of Stroke/TIA/or VTE No 0 Hx of Diabetes No 0 Hx of Vascular Disease No 0 Total 1 Treatment Treatment ordered: NONE Reason Anticoagulant not given: Not indicated/[id number] SILVA PLAZA MD Sep 07, 2020 14:12
[2020-09-07 16:24] VITALS: BP 139/77
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
[2020-09-07] MEDS ORDERED: LORazepam 2 MG/ML VIAL IM STA ×2 (17:06→17:55)
[2020-09-07] MEDS ORDERED: OLANZapine INTRAMUSCULAR 10MG VIAL IM STA (17:06)
[2020-09-07] MEDS ORDERED: diphenhydrAMINE 50MG/ML VIAL (J1200) IM STA (17:55)
[2020-09-07] MEDS ORDERED: HALOPERIDOL 5MG/ML VIAL (J1630 PER 1) IM STA (17:55)
[2020-09-08] MEDS: MULTIVITAMINS/MINERALS THERAP 1 TAB PO SCH (10:52)
[2020-09-08] MEDS: ARIPiprazole 10 MG TAB PO SCH ×2 (10:52→21:21)
[2020-09-08] MEDS: DIVALPROEX 500 MG TAB PO SCH ×2 (10:52→21:21)
[2020-09-08] MEDS: ASCORBIC ACID 500 MG TAB PO SCH (10:53)
[2020-09-08] MEDS: BENZOCAINE 10% 9GM TUBE (ANBESOL) MT SCH ×4 (10:57→21:20)
--- NOTE | 2020-09-08 13:51 | MHIPNPDOC ---
[facility] Progress Note Progress Note Subjective: Kaitlin is a 19 year old female with a history of unspecified psychosis and Stimulant use disorder who was transferred to the [facility] from the medicine service, after a psychotic exacerbation from LSD ingestion. (Which also resulted in Rhabdomyolysis) Kaitlin, after being transferred back from the Medicine service for a workup of tachycardia, was medically cleared and upon returning to the [facility], was increasingly agitated/hostile/aggressive with staff. Due to the degree of her psychotic agitation and being an imminent danger to others, she did require 4 point restraints and she was medicated on two different occasions. The first time she was medicated was with Zyprexa 10 mg/Ativan 2 mg IM STAT for psychotic agitation/anxiety. Due to her still being an imminent danger several hours later, she received Haldol 5 mg/Ativan 2 mg/Benadryl 50 mg IM STAT for psychotic agitation/anxiety/EPS, respectively, with a better response. Today, she appeared much less labile and not as internally preoccupied, as the day before. Im feeling better; I had a really rough day yesterday. Objective: She was seen and evaluated, alert and oriented times three, cognition fair, dressed in hospital gowns, appears younger than stated age, good hygiene, a bit psychomotor agitated but less so than yesterday; Speech is increased in production, fast in rate and normal in volume. Mood: I love rainbows! affect: labile, increased intensity and range; TP are tangential, disorganized with flight of ideas; TC contains paranoid and grandiose delusional themes. Denies any current passive or active suicidal or homicidal ideation, intent or plan. Denies AH/VH/TH but she does appear to be responding to internal stimuli. I/IC/J are poor. Diagnosis: Unspecified Psychotic disorder Stimulant use disorder, severe type A/P: 1) Today, increased her Abilify to 15 mg twice daily to better alleviate psychotic sxs. Continued Depakote DR at 500 mg twice daily; Depakote trough level due on 09/12/20. 2) Continue to collaborate with treatment team and Hospitalist. 3) Q 15 min checks 4) Collaborate with discharge planners for the safest, most optimal, discharge, upon her clinical stabilization. 5) Continue to encourage participation with group programming and activities on the unit. Total time spent: 45 minutes Vital Signs Vital Signs Date Time Temp Pulse Resp B/P (MAP) Pulse Ox O2 Delivery O2 Flow Rate FiO2 09/07/20 16:24 98.1 104 18 139/77 (97) 98 Room Air Current Medications Current Medications Medications (Trade) Dose Ordered Sig/Jovani Route PRN Reason Start Time Stop Time Status Last Admin Dose Admin Acetaminophen (Tylenol Tab) 650 mg Q6HP PRN PO HEADACHE or DISCOMFORT 09/06/20 14:30 09/07/20 05:30 Al Hydrox/Mg Hydrox/Simethicone (Mylanta) 30 ml Q4HP PRN PO HEARTBURN/INDIGESTION 09/06/20 14:30 Aripiprazole (AbiLIFY) 10 mg BID PO 09/06/20 21:00 09/08/20 12:05 DC 09/08/20 10:52 Aripiprazole (AbiLIFY) 15 mg BID PO 09/08/20 21:00 Ascorbic Acid (Vitamin C) 500 mg DAILY PO 09/07/20 09:00 09/08/20 10:53 Benzocaine (Anbesol Gel) TO MOUTH SORES QID MT 09/06/20 17:00 09/08/20 12:44 Diphenhydramine HCl (Benadryl) 50 mg STAT STAT IM 09/07/20 17:55 09/07/20 17:58 DC 09/07/20 18:04 Divalproex Sodium (Depakote) 125 mg QHS PO 09/06/20 21:00 09/07/20 12:19 DC 09/06/20 20:28 Divalproex Sodium (Depakote) 500 mg BID PO 09/07/20 13:00 09/08/20 10:52 Haloperidol (Haldol) 5 mg STAT STAT IM 09/07/20 17:55 09/07/20 17:58 DC 09/07/20 18:03 Lorazepam (Ativan) 2 mg STAT STAT IM 09/07/20 17:06 09/07/20 17:15 DC 09/07/20 17:25 Lorazepam (Ativan) 2 mg STAT STAT IM 09/07/20 17:55 09/07/20 17:58 DC 09/07/20 18:04 Magnesium Hydroxide (Milk Of Magnesia) 30 ml DAILYPRN PRN PO CONSTIPATION 09/06/20 14:30 Multivitamins (Theragram-M) 1 tab DAILY PO 09/07/20 09:00 09/08/20 10:52 Nicotine (Nicorette) 2 mg Q4HP PRN PO NICOTINE WITHDRAWAL 09/06/20 14:30 09/07/20 01:58 Olanzapine (ZyPREXA) 5 mg Q4HP PRN PO ANXIETY/AGITATION 09/06/20 14:30 09/07/20 13:11 Olanzapine (Zyprexa Intramuscular) 10 mg STAT STAT IM 09/07/20 17:06 09/07/20 17:08 DC 09/07/20 17:25 Trazodone HCl (Desyrel) 50 mg QHSP PRN PO INSOMNIA 09/06/20 14:30 Allergies Coded Allergies: No Known Allergies (Unverified , 12/18/16) ARTHUR KOROMA MD Sep 08, 2020 13:51
[2020-09-08] MEDS: traZODone 50 MG TAB PO PRN (21:23)
[2020-09-08] MEDS: NICOTINE POLACRILEX 2 MG GUM PO PRN (22:39)
[2020-09-08] MEDS ORDERED: LORazepam 2 MG TAB PO ONE (23:45)
[2020-09-08] MEDS: OLANZapine 5 MG TAB PO PRN (23:51)
[2020-09-09] MEDS: ACETAMINOPHEN TAB 650MG DOSE (2X325MG) PO PRN ×3 (04:58→21:21)
[2020-09-09] MEDS: NICOTINE POLACRILEX 2 MG GUM PO PRN (04:58)
[2020-09-09 06:38] VITALS: BP 115/69
[2020-09-09] MEDS: ARIPiprazole 10 MG TAB PO SCH ×2 (08:43→21:21)
[2020-09-09] MEDS: DIVALPROEX 500 MG TAB PO SCH ×2 (08:43→21:20)
[2020-09-09] MEDS: MULTIVITAMINS/MINERALS THERAP 1 TAB PO SCH (08:43)
[2020-09-09] MEDS: BENZOCAINE 10% 9GM TUBE (ANBESOL) MT SCH ×4 (08:43→21:20)
[2020-09-09] MEDS: ASCORBIC ACID 500 MG TAB PO SCH (08:43)
--- NOTE | 2020-09-09 12:25 | MHIPNPDOC ---
[facility] Progress Note Progress Note DATE OF SERVICE: 09/09/20 Patient is a 19 year old Single, Domiciled -[place] Female who was a direct admit from Medical for Rhabdomyolysis. It was reported that patient was psychotic due to LSD ingestion. She was disorganized, scattered and delusional on medicine and admitted to psychiatry for these symptoms. On 09/05/20 patient had an episode of Tachycardia and was transferred to telemetry. Pt was transferred back from the Medicine service for a workup of tachycardia, was medically cleared and upon returning to the [facility], was increasingly agitated/hostile/aggressive with staff upon her return to psychiatry and , she required 4 point restraints and she was medicated on two different occasions on 09/07/20. VITAL SIGNS: See below. NEW TEST RESULTS: CURRENT MEDICATIONS: See below. MENTAL STATUS EXAMINATION: Patient is a 19-year old Single, Domiciled, female, who is was admitted to psychiatry from Medical due to Tachycardia which has resolved. She appears her stated age, is dressed in hospital scrubs and has fair hygiene and grooming. She makes good eye contact, not observed with psychomotor agitation or retardation Speech: normal rate tone and volume Language skills are intact Thought processes including: increased linear thinking Thought content: denies depression, anxiety and SI/HI. Abstract reasoning, and computation: fair Description of associations: Description of abnormal or psychotic thoughts: patient denies, none observed Judgment: improving Insight: improving Orientation: Alert and oriented to person place and time Recent and remote memory: Fair Attention span and concentration: improving Language: Fair Fund of knowledge: Average Mood: "I am good" Affect: flat, congruent to mood, mildly guarded DIAGNOSES: 1. Bipolar I Disorder, Manic Episode 2. Social anxiety. 3. Posttraumatic stress disorder symptoms by history. 4. Cannabis use disorder, moderate 5. Alcohol use disorder, mild (binges) 6. Hallucinogen use disorder, mild. 7. Stimulant use disorder, mild 8. Rule out borderline personality disorder. ASSESSMENT: Patient reports improvement, states that had a good weekend, was active in the activities and has been social with friend. She minimized her behaviors upon her return from medicine and denied that she had any behavioral issues. Per staff report, patient was restrained on two different occasions needing both emergency medications and restraints due to the level of her aggression and level of violence. On interview, patient is alert and oriented, mildly guarded. Denies depression, SI/HI, denies auditory or visual hallucinations and denies paranoia. She is not observed to be depressed or anxious and is cooperative in the interview. Her thought process is linear and she is not observed with any perceptual disturbances during the interview. Behavior at this time is good but patient has in the past shown unpredictable and dangerous behaviors. We will continue observations as ordered. Reinforced with patient that she can be discharged with documented improvement in mood, affect and decreased aggressiveness, persecutory/sexual preoccupations. MANAGEMENT PLAN: Continue all treatment and medications as ordered. Patient agreeable to Mood Stabilizer, will discharge her when she is stable. Vital Signs Vital Signs Date Time Temp Pulse Resp B/P (MAP) Pulse Ox O2 Delivery O2 Flow Rate FiO2 09/09/20 06:38 98.4 118 20 115/69 (84) 100 Room Air Current Medications Current Medications Medications (Trade) Dose Ordered Sig/Jovani Route PRN Reason Start Time Stop Time Status Last Admin Dose Admin Acetaminophen (Tylenol Tab) 650 mg Q6HP PRN PO HEADACHE or DISCOMFORT 09/06/20 14:30 09/09/20 04:58 Al Hydrox/Mg Hydrox/Simethicone (Mylanta) 30 ml Q4HP PRN PO HEARTBURN/INDIGESTION 09/06/20 14:30 Aripiprazole (AbiLIFY) 10 mg BID PO 09/06/20 21:00 09/08/20 12:05 DC 09/08/20 10:52 Aripiprazole (AbiLIFY) 15 mg BID PO 09/08/20 21:00 09/09/20 08:43 Ascorbic Acid (Vitamin C) 500 mg DAILY PO 09/07/20 09:00 09/09/20 08:43 Benzocaine (Anbesol Gel) TO MOUTH SORES QID MT 09/06/20 17:00 09/09/20 08:43 Diphenhydramine HCl (Benadryl) 50 mg STAT STAT IM 09/07/20 17:55 09/07/20 17:58 DC 09/07/20 18:04 Divalproex Sodium (Depakote) 125 mg QHS PO 09/06/20 21:00 09/07/20 12:19 DC 09/06/20 20:28 Divalproex Sodium (Depakote) 500 mg BID PO 09/07/20 13:00 09/09/20 08:43 Haloperidol (Haldol) 5 mg STAT STAT IM 09/07/20 17:55 09/07/20 17:58 DC 09/07/20 18:03 Lorazepam (Ativan) 2 mg STAT STAT IM 09/07/20 17:06 09/07/20 17:15 DC 09/07/20 17:25 Lorazepam (Ativan) 2 mg STAT STAT IM 09/07/20 17:55 09/07/20 17:58 DC 09/07/20 18:04 Magnesium Hydroxide (Milk Of Magnesia) 30 ml DAILYPRN PRN PO CONSTIPATION 09/06/20 14:30 Multivitamins (Theragram-M) 1 tab DAILY PO 09/07/20 09:00 09/09/20 08:43 Nicotine (Nicorette) 2 mg Q4HP PRN PO NICOTINE WITHDRAWAL 09/06/20 14:30 09/09/20 04:58 Olanzapine (ZyPREXA) 5 mg Q4HP PRN PO ANXIETY/AGITATION 09/06/20 14:30 09/08/20 23:51 Olanzapine (Zyprexa Intramuscular) 10 mg STAT STAT IM 09/07/20 17:06 09/07/20 17:08 DC 09/07/20 17:25 Trazodone HCl (Desyrel) 50 mg QHSP PRN PO INSOMNIA 09/06/20 14:30 09/08/20 21:23 Allergies Coded Allergies: No Known Allergies (Unverified , 12/18/16) LEDY FRIEDMAN NP Sep 09, 2020 12:25
[2020-09-09 18:00] VITALS: BP 136/87
[2020-09-09] MEDS: traZODone 50 MG TAB PO PRN (21:21)
[2020-09-09] MEDS ORDERED: traZODone 50 MG TAB PO ONE (23:15)
[2020-09-10 06:00] VITALS: BP 116/73
[2020-09-10] MEDS: BENZOCAINE 10% 9GM TUBE (ANBESOL) MT SCH ×4 (08:20→21:00)
[2020-09-10] MEDS: ACETAMINOPHEN TAB 650MG DOSE (2X325MG) PO PRN ×2 (08:21→22:00)
[2020-09-10] MEDS: ASCORBIC ACID 500 MG TAB PO SCH (08:22)
[2020-09-10] MEDS: MULTIVITAMINS/MINERALS THERAP 1 TAB PO SCH (08:22)
[2020-09-10] MEDS: DIVALPROEX 500 MG TAB PO SCH ×2 (08:22→20:19)
[2020-09-10] MEDS: ARIPiprazole 10 MG TAB PO SCH ×2 (08:22→20:20)
[2020-09-10] MEDS: NICOTINE POLACRILEX 2 MG GUM PO PRN ×2 (11:33→21:00)
--- NOTE | 2020-09-10 13:00 | MHIPNPDOC ---
[facility] Progress Note Progress Note DATE OF SERVICE: 09/10/20 stefanie is a 19 year old Single, Domiciled -[place] Female who was a direct admit from Medical for Rhabdomyolysis. It was reported that patient was psychotic due to LSD ingestion. She was disorganized, scattered and delusional on medicine and admitted to psychiatry for these symptoms. On 09/05/20 patient had an episode of Tachycardia and was transferred to telemetry. Pt was transferred back from the Medicine service for a workup of tachycardia, was medically cleared and [facility], was increasingly a gitated/hostile/aggressive with staff upon her return to psychiatry and , she required 4 point restraints and she was medicated on two different occasions on 09/07/20. VITAL SIGNS: See below. CURRENT MEDICATIONS: See below. MENTAL STATUS EXAMINATION: Patient is a 19-year old Single, Domiciled, female, who is was admitted to psychiatry from Medical due to Tachycardia which has resolved. She appears her stated age, is dressed in hospital scrubs and has fair hygiene and grooming. She makes good eye contact, not observed with psychomotor agitation or retardation Speech: normal rate tone and volume Language skills are intact Thought processes including: increased linear thinking Thought content: denies depression, anxiety and SI/HI. Abstract reasoning, and computation: fair Description of associations: Description of abnormal or psychotic thoughts: patient denies, none observed Judgment: fair, improving Insight: fair, improving Orientation: Alert and oriented to person place and time Recent and remote memory: Fair Attention span and concentration: average Language: Fair Fund of knowledge: Average Mood: "I am good" Affect: congruent with mood, mildly guarded DIAGNOSES: 1. Bipolar I Disorder, Manic Episode 2. Social anxiety. 3. Posttraumatic stress disorder symptoms by history. 4. Cannabis use disorder, moderate 5. Alcohol use disorder, mild (binges) 6. Hallucinogen use disorder, mild. 7. Stimulant use disorder, mild 8. Rule out borderline personality disorder. ASSESSMENT: In today's session, patient reports, "I'm feeling really really good." She states that she is eating and sleeping adequately. When questioned about behaviors requiring restraints this past weekend, she reports, "I don't really remember." She is alert and oriented x3, denies si/hi/ah/vh/paranoia and states she is looking forward to discharge later this week. She reports she feels the medications are working well and that she will stay on them after discharge. Her behaviors have been appropriate today, does not appear to be depressed or anxious, internally preoccupied, or responding to internal stimuli. She was encouraged to continue her appropriate behavior, as criteria for being discharged. Patient returned to the office a few hours after initial interview, requesting to be discharged today, reported she felt like she didn't need to be here and that other patients were making her feel uncomfortable and that she no longer required this level of care. It was discussed that at as long as she remained in behavioral control and that her behavior remained appropriate that she could be discharged tomorrow. She was agreeable to this plan. MANAGEMENT PLAN: Continue all treatment and medications as ordered. Will discharge when stable TIME SPENT: 25 minutes Vital Signs Vital Signs Date Time Temp Pulse Resp B/P (MAP) Pulse Ox O2 Delivery O2 Flow Rate FiO2 09/10/20 06:00 98.7 122 18 116/73 (87) 97 Room Air Current Medications Current Medications Medications (Trade) Dose Ordered Sig/Jovani Route PRN Reason Start Time Stop Time Status Last Admin Dose Admin Acetaminophen (Tylenol Tab) 650 mg Q6HP PRN PO HEADACHE or DISCOMFORT 09/06/20 14:30 09/10/20 08:21 Al Hydrox/Mg Hydrox/Simethicone (Mylanta) 30 ml Q4HP PRN PO HEARTBURN/INDIGESTION 09/06/20 14:30 Aripiprazole (AbiLIFY) 10 mg BID PO 09/06/20 21:00 09/08/20 12:05 DC 09/08/20 10:52 Aripiprazole (AbiLIFY) 15 mg BID PO 09/08/20 21:00 09/10/20 08:22 Ascorbic Acid (Vitamin C) 500 mg DAILY PO 09/07/20 09:00 09/10/20 08:22 Benzocaine (Anbesol Gel) TO MOUTH SORES QID MT 09/06/20 17:00 09/10/20 08:20 Diphenhydramine HCl (Benadryl) 50 mg STAT STAT IM 09/07/20 17:55 09/07/20 17:58 DC 09/07/20 18:04 Divalproex Sodium (Depakote) 125 mg QHS PO 09/06/20 21:00 09/07/20 12:19 DC 09/06/20 20:28 Divalproex Sodium (Depakote) 500 mg BID PO 09/07/20 13:00 09/10/20 08:22 Haloperidol (Haldol) 5 mg STAT STAT IM 09/07/20 17:55 09/07/20 17:58 DC 09/07/20 18:03 Lorazepam (Ativan) 2 mg STAT STAT IM 09/07/20 17:06 09/07/20 17:15 DC 09/07/20 17:25 Lorazepam (Ativan) 2 mg STAT STAT IM 09/07/20 17:55 09/07/20 17:58 DC 09/07/20 18:04 Magnesium Hydroxide (Milk Of Magnesia) 30 ml DAILYPRN PRN PO CONSTIPATION 09/06/20 14:30 Multivitamins (Theragram-M) 1 tab DAILY PO 09/07/20 09:00 09/10/20 08:22 Nicotine (Nicorette) 2 mg Q4HP PRN PO NICOTINE WITHDRAWAL 09/06/20 14:30 09/10/20 11:33 Olanzapine (ZyPREXA) 5 mg Q4HP PRN PO ANXIETY/AGITATION 09/06/20 14:30 09/08/20 23:51 Olanzapine (Zyprexa Intramuscular) 10 mg STAT STAT IM 09/07/20 17:06 09/07/20 17:08 DC 09/07/20 17:25 Trazodone HCl (Desyrel) 50 mg QHSP PRN PO INSOMNIA 09/06/20 14:30 09/09/20 21:21 Allergies Coded Allergies: No Known Allergies (Unverified , 12/18/16) LEDY FRIEDMAN NP Sep 10, 2020 12:42
[2020-09-10] MEDS: OLANZapine 5 MG TAB PO PRN ×2 (14:36→19:41)
[2020-09-10 16:00] VITALS: BP 148/78
[2020-09-10] MEDS: traZODone 50 MG TAB PO PRN (22:00)
[2020-09-11] MEDS: OLANZapine 5 MG TAB PO PRN ×4 (01:31→10:26)
[2020-09-11] MEDS ORDERED: traZODone 50 MG TAB PO ONE (01:45)
[2020-09-11 05:49] VITALS: BP 133/81
[2020-09-11] MEDS: DIVALPROEX 500 MG TAB PO SCH (08:19)
[2020-09-11] MEDS: ASCORBIC ACID 500 MG TAB PO SCH (08:19)
[2020-09-11] MEDS: MULTIVITAMINS/MINERALS THERAP 1 TAB PO SCH (08:19)
[2020-09-11] MEDS: ARIPiprazole 10 MG TAB PO SCH (08:19)
[2020-09-11] MEDS: BENZOCAINE 10% 9GM TUBE (ANBESOL) MT SCH (08:44)
[2020-09-11] MEDS: NICOTINE POLACRILEX 2 MG GUM PO PRN (08:45)
[2020-09-11] MEDS ORDERED: ARIP1TAB44 PO (09:41)
[2020-09-11] MEDS ORDERED: DEPA1TAB3 PO (09:41)
[2020-09-11] MEDS ORDERED: INVE234I IM ×2 (09:43→09:45)
--- NOTE | 2020-09-11 14:07 | MHDSPDOC ---
[facility] Discharge Summary Discharge Summary DATE OF ADMISSION: Sep 06, 2020 at 16:45 DATE OF DISCHARGE: Sep 11, 2020 at 12:30 DISCHARGE DIAGNOSES: DIAGNOSES: 1. Bipolar I Disorder, Manic Episode 2. Social anxiety. 3. Posttraumatic stress disorder symptoms by history. 4. Cannabis use disorder, moderate 5. Alcohol use disorder, mild (binges) 6. Hallucinogen use disorder, mild. 7. Stimulant use disorder, mild 8. Rule out borderline personality disorder. REASON FOR ADMISSION: Patient is a 19 year old Single, Domiciled - [place] Female who was a direct admit from Medical for Rhabdomyolysis. It was reported that patient was psychotic due to LSD ingestion. She was disorganized, scattered and delusional on medicine and admitted to psychiatry for these symptoms. On 09/05/20 patient had an episode of Tachycardia and was transferred to telemetry. Pt was transferred back from the Medicine service for a workup of tachycardia, was medically cleared and [facility], was increasingly agitated/hostile/aggressive with staff upon her return to psychiatry and , she required 4 point restraints and she was medicated on two different occasions on 09/07/20. CONSULTANTS INVOLVED: See hospitalist H&P TREATMENT AND PROGRESS ON THE UNIT : Patient was admitted on a 9.39 legal status and was afforded the following treatment modalities: 1) medication therapy and management 2) mileu therapy 3) safe environment 4) group therapy 5) Individual therapy HOSPITAL COURSE: Patient was initially admitted to the hospital after she had reported she was "on a bad acid trip." She was treated on the medical floor for rhabdomyolysis and after she was medically cleared, was transferred to [facility]. Since admission, she has been sexually preoccupied delusional, responding to internal stimuli, aggressive and assaultive towards other peers and staff. She was chemically and physically restrained multiple times due to her behaviors. She was transferred to the medical floor again, after becoming tachycardic but was transferred [facility] DISCHARGE ASSESSMENT: In today's session, Kaitlin reports she feels "really good" and is still hopeful to be discharged back to her residence, where she lives with her parents and siblings, who are supportive. She reports that when she gets home she plans on looking at different colleges, as she ultimately wants to get a Master's degree in business law. she states that she is struggling with focus/ concentration as she has difficulties getting tasks done but that she has always struggled with this problem and plans on addressing her concerns with her outpatient psychiatrist. She has been observed still trying to get attention from male peers but is redirectable. Per staff reports, she was helpful to other peers yesterday on the unit and has remained in behavioral control since the discussion on 09/09/20 that remaining in behavioral control was part of her criteria for discharge. She denies ah/vh/si/hi, does not appear to be psychotic, anxious, or depressed and therefore due to her normal MSE will be discharge home per her request as she does not meet involuntary criteria. MENTAL STATUS EXAMINATION ON DISCHARGE: Patient is a 19-year old Single, Domiciled, female, who is was admitted to psychiatry from Medical due to Tachycardia which has resolved. She appears her stated age, is dressed in hospital scrubs and has fair hygiene and grooming. She makes good eye contact, not observed with psychomotor agitation or retardation Speech: normal rate tone and volume Language skills are intact Thought processes including: increased linear thinking Thought content: denies depression, anxiety and SI/HI. Abstract reasoning, and computation: fair Description of associations: Description of abnormal or psychotic thoughts: patient denies, none observed Judgment: fair, improving Insight: fair, improving Orientation: Alert and oriented to person place and time Recent and remote memory: Fair Attention span and concentration: average Language: Fair Fund of knowledge: Average Mood: "I am good" Affect: congruent with mood, mildly guarded MEDICATIONS ON DISCHARGE: - Invega Sustena 234 mg - due 09/25/20 - Abilify 15 mg po bid - Depakote 500 mg po bid PLAN/FOLLOWUP ARRANGEMENTS: [facility] The amount of time spent in the coordination of care for this patient was approximately 30 minutes. VITAL SIGNS: See below. CURRENT MEDICATIONS: See below. ASSESSMENT: In today's session, patient reports, "I'm feeling really really good." She states that she is eating and sleeping adequately. When questioned about behaviors requiring restraints this past weekend, she reports, "I don't really remember." She is alert and oriented x3, denies si/hi/ah/vh/paranoia and states she is looking forward to discharge later this week. She reports she feels the medications are working well and that she will stay on them after discharge. Her behaviors have been appropriate today, does not appear to be depressed or anxious, internally preoccupied, or responding to internal stimuli. She was encouraged to continue her appropriate behavior, as criteria for being discharged. Patient returned to the office a few hours after initial interview, requesting to be discharged today, reported she felt like she didn't need to be here and that other patients were making her feel uncomfortable and that she no longer required this level of care. It was discussed that at as long as she remained in behavioral control and that her behavior remained appropriate that she could be discharged tomorrow. She was agreeable to this plan. Vital Signs/I&Os Vital Signs Date Time Temp Pulse Resp B/P (MAP) Pulse Ox O2 Delivery O2 Flow Rate FiO2 09/11/20 05:49 97.7 121 20 133/81 (98) 99 Room Air Medications Scheduled Aripiprazole (Aripiprazole) 30 Mg Tablet, 1 TAB PO DAILY for paychosis, #7 Take 1/2 tablet twice daily Ascorbic Acid (Vitamin C) 500 Mg Tablet, 500 MG PO DAILY, (Reported) Divalproex Sodium (Depakote) 500 Mg Tablet.dr, 500 MG PO BID for mood stabalizer, #14 Multivitamins (Thera M Plus Tablet) 1 Each Tablet, 1 TAB PO DAILY, (Reported) Paliperidone Palmitate (Invega Sustenna) 234 Mg/1.5 Ml Syringe, 1 SYRINGE IM Q30D for psychosis, #1 Invega sustena due 09/25/20 Allergies Coded Allergies: No Known Allergies (Unverified , 12/18/16) LEDY FRIEDMAN NP Sep 11, 2020 14:07
--- NOTE | 2020-09-11 19:48 | DSES ---
PSYCHIATRIC DISCHARGE SUMMARY DATE OF ADMISSION: 09/06/2020 at 1645 DATE OF DISCHARGE: 09/11/2020 at 1230 DIAGNOSES: 1. Bipolar I disorder manic episode. 2. Social anxiety. 3. Posttraumatic stress disorder symptoms by history. 4. Cannabis use disorder, moderate. 5. Alcohol use disorder, mild binges. 6. Hallucinogen use disorder, mild. 7. Stimulant use disorder, mild. 8. Rule out borderline personality disorder. REASON FOR ADMISSION: The patient is a 19-year-old single domiciled -Citizen Of [place] female who was a direct admit from the medical floor for rhabdomyolysis. It was reported that the patient was psychotic due to LSD ingestion. She was disorganized, scattered, and delusional on medicine and reported to psychiatry for these symptoms. On 09/05/2020, the patient had an episode of tachycardia and was transferred to telemetry. She was then transferred back to [facility] from medicine for workup of tachycardia after she was medically cleared. Upon returning to [facility], she was increasingly agitated, hostile, and aggressive with staff upon her return to psychiatry and she required four-point restraints and was medicated on two different occasions on 09/07/2020. CONSULTANTS INVOLVED: See hospitalist H&P. TREATMENT AND PROGRESS ON UNIT: The patient was admitted on the 9.39 legal status and was afforded the following treatment modalities. 1. Individual therapy. 2. Group therapy. 3. Medication management. 4. Milieu therapy. 5. Safe environment. HOSPITAL COURSE: The patient was initially admitted to the [facility] on the 9.39 on 08/24/2020, from the medical floor for she was in rhabdomyolysis. She presented to the emergency room prior to this after she reported she was on a bad acid trip. Since admission, she has been sexually preoccupied, assaultive to peers, and had required multiple physical restraints. She was transferred to the medical floor again for tachycardia and then transferred back to [facility]. DISCHARGE ASSESSMENT: In today's session, the patient reports "I'm feeling really good." She is pleasant, calm, cooperative, easy to engage, and realty based conversation. She reports she is struggling with her concentration and focus, as she finds herself unable to focus on tasks that she must complete, but that she has always struggled with this and plans to address this issue with her outpatient provider. Her mood is euthymic and affect is congruent with mood. She states she is looking forward to planned discharge today and plans to return to her residence with her mother, father, and siblings. She states that today when she gets home, she plans on looking at different colleges and ultimately plans to obtain her master's degree in business law. She has remained in behavioral control after it was discussed with her on 09/09/2020, and maintaining behavioral control will be part of her discharge criteria. Although she is still somewhat focused on male attention, she is redirectable and appropriate with peers with staff reporting that she had been helpful to some of her peers yesterday in the milieu. She denies H/VH/SI/HI. Does not appear to be depressed or anxious or displaying any symptoms of psychosis. Due to her normal mental status exam, she will be discharged home per her request. MEDICAL STATUS EXAMINATION ON DISCHARGE: The patient is a 19-year-old single domiciled -Citizen [place] female who was admitted to psychiatry from [facility] due to tachycardia, which has resolved. She appears her stated age, is dressed in hospital scrubs, and has fair hygiene and grooming. She makes good eye contact. No observed with psychomotor agitation or retardation. Her speech is normal rate, tone, and rhythm. Her language skills are intact. Her thought processes are linear. She denies depression. Denies anxiety. Denies SI/HI. Her abstract, reasoning, and computation are fair. She denies any abnormal or psychotic thoughts and no abnormal or psychotic thoughts are observed. Her judgment and insight are fair, they are both improving. She is alert and oriented to person, place, and time. She has fair recent and remote memory. Her attention span and concentration are average. She reports her mood is good and her affect is congruent with mood. DISCHARGE MEDICATIONS: - Abilify 15 mg p.o. b.i.d. - Depakote 500 mg p.o. b.i.d. - Invega Sustenna 234 mg IM will be due on 09/25/2020. Planned follow-up arrangement at [facility] in [facility]. The amount of time spent on coordination of the care for this patient was approximately 30 minutes.
== END 2020-09-11 12:30 | disposition home or self-care (01) | DRG 885 ==
LOC: M PSY 16:45
PROVIDERS: ADMIT Psychiatry & Neurology Geriatric Psychiatry; ATTEND Psychiatry & Neurology Psychiatry
DX: F31.9 Bipolar disorder, unspecified (principal); F15.10 Other stimulant abuse, uncomplicated; F43.10 Post-traumatic stress disorder, unspecified; F12.10 Cannabis abuse, uncomplicated; F10.10 Alcohol abuse, uncomplicated; F16.10 Hallucinogen abuse, uncomplicated; F60.3 Borderline personality disorder; F40.10 Social phobia, unspecified; Z79.899 Other long term (current) drug therapy; Z78.1 Physical restraint status

== ENCOUNTER 2024-03-16 23:38 | Inpatient (IN) | payer OTHER ==
[~2024-03-16] VITALS: Ht 157.5 cm; Wt 69.2 kg
[~2024-03-16 23:38] MED LIST changes: +ARIP10TA32 PO; +ARIP1TAB44 PO; +DEPA1TAB3 PO; +INVE234I IM
[2024-03-17 00:38] LABS: HEMATOCRIT 39.5 % (36.0-47.0); HEMOGLOBIN 13.1 g/dl (12.0-15.5); MEAN CORPUSCULAR HEMOGLOBIN 31.1 pg (27.0-33.0); MEAN CORPUSCULAR HGB CONC 33.2 g/dl (32.0-36.5); MEAN CORPUSCULAR VOLUME 93.8 fl (80.0-96.0); PLATELET COUNT, AUTOMATED 300 10^3/uL (150-450); RED BLOOD COUNT 4.21 10^6/uL (4.00-5.40); WHITE BLOOD COUNT 10.6 10^3/uL (4.0-10.0)
[2024-03-17] MEDS: OLANZapine ORAL DISINTEGRATING TAB 5MG PO ONE (00:40)
[2024-03-17 00:53] LABS: ETHYL ALCOHOL (ETHANOL) < 0.003 % (0.000-0.010)
[2024-03-17 00:55] LABS: ALBUMIN 4.2 G/DL (3.2-5.2); ALKALINE PHOSPHATASE 60 U/L (46-116); ALT/SGPT 29 U/L (7.0-40); AST/SGOT 37 U/L (<34); BILIRUBIN,DIRECT 0.1 MG/DL (<0.4); BILIRUBIN,TOTAL 0.4 MG/DL (0.3-1.2); BLOOD UREA NITROGEN 11 MG/DL (9-23); CALCIUM LEVEL 9.5 MG/DL (8.5-10.1); CARBON DIOXIDE LEVEL 24 MMOL/L (20-31); CHLORIDE LEVEL 105 MMOL/L (98-107); CREATININE FOR GFR 0.83 MG/DL (0.55-1.30); GLOMERULAR FILTRATION RATE > 60.0 (>60); GLUCOSE, FASTING 110 MG/DL (60-100); HCG, SERUM QUALITATIVE NEGATIVE (NEGATIVE); POTASSIUM SERUM 3.7 MMOL/L (3.5-5.1); SALICYLATE LEVEL < 3.0 MG/DL (<30); SODIUM LEVEL 137 MMOL/L (136-145); TOTAL PROTEIN 7.8 G/DL (5.7-8.2)
[2024-03-17] MEDS: LORazepam 2 MG/ML 1ML VIAL IM ONE ×2 (01:10→05:45)
[2024-03-17] MEDS: diphenhydrAMINE 50MG/ML VIAL IM ONE ×2 (01:10→05:45)
[2024-03-17 01:20] LABS: BARBITURATES URINE NEGATIVE (NEGATIVE); COCAINE METABOLITE URINE NEGATIVE (NEGATIVE); METHADONE URINE NEGATIVE (NEGATIVE); OPIATES URINE NEGATIVE (NEGATIVE)
[2024-03-17 01:21] LABS: AMPHETAMINES LEVEL URINE NEGATIVE (NEGATIVE); BENZODIAZEPINES URINE NEGATIVE (NEGATIVE); PHENCYCLIDINE URINE NEGATIVE (NEGATIVE)
[2024-03-17 01:25] LABS: CANNABINOIDS URINE POSITIVE (NEGATIVE)
[2024-03-17] MEDS: HALOPERIDOL LACTATE 5MG/ML VIAL IM ONE (05:45)
[2024-03-17] MEDS ORDERED: MULTTAB61 PO (08:37)
[2024-03-17] MEDS ORDERED: ARIP1TAB4 PO (08:37)
[2024-03-17] MEDS ORDERED: HOME MED LIST COMPLETE! XX SCH (08:40)
[2024-03-17] MEDS: ASCORBIC ACID 500 MG TAB PO SCH (10:03)
[2024-03-17] MEDS: MULTIVITAMINS/MINERALS THERAP 1 TAB PO SCH (10:03)
[2024-03-17] MEDS: ARIPiprazole 2 MG TAB PO SCH (10:03)
[2024-03-17] MEDS ORDERED: MOM 30ML SUSPENSION UDC PO PRN (11:45)
[2024-03-17] MEDS ORDERED: IBUPROFEN 400MG TAB PO PRN (11:45)
[2024-03-17] MEDS ORDERED: MAALOX 30 ML SUSP *UDC PO PRN (11:45)
[2024-03-17 14:22] VITALS: BP 127/96; TEMP 97.2; O2SAT 98
[2024-03-17] MEDS: diphenhydrAMINE 25MG CAP PO PRN (15:57)
[2024-03-17] MEDS: OLANZapine ORAL DISINTEGRATING TAB 5MG PO PRN (17:51)
[2024-03-17] MEDS: traZODone 50 MG TAB PO PRN (20:21)
[2024-03-17] MEDS ORDERED: ARIPiprazole 2 MG TAB PO SCH (21:00)
[2024-03-17] MEDS: OLANZapine 10 MG TAB PO SCH (21:08)
[2024-03-17] MEDS: traZODone 100 MG TAB PO SCH (21:08)
[2024-03-17] MEDS: HALOPERIDOL LACTATE 5MG/ML VIAL IM STA (23:23)
[2024-03-17] MEDS: diphenhydrAMINE 50MG/ML VIAL IM STA (23:23)
[2024-03-17] MEDS: LORazepam 2 MG/ML 1ML VIAL IM STA (23:23)
[2024-03-17] MEDS: MUPIROCIN 2% OINT 22 GM TUBE TOP SCH (23:45)
[2024-03-18] MEDS ORDERED: UNRESOLVED CLARIFICATION ENTRY XX SCH (00:01)
[2024-03-18 01:41] VITALS: BP 114/66; TEMP 97.6; O2SAT 99
[2024-03-18] MEDS ORDERED: ASCORBIC ACID 500 MG TAB PO SCH (09:00)
[2024-03-18] MEDS ORDERED: MULTIVITAMINS/MINERALS THERAP 1 TAB PO ONE (09:00)
[2024-03-18] MEDS: OLANZapine 10 MG TAB PO ONE (11:09)
[2024-03-18] MEDS: HALOPERIDOL LACTATE 5MG/ML VIAL IM STA (15:43)
[2024-03-18] MEDS: chlorproMAZINE INJ 50MG/2ML AMP IM STA (16:51)
[2024-03-18 19:30] VITALS: BP 131/72; TEMP 98
[2024-03-18 20:00] VITALS: BP 131/2; TEMP 98; O2SAT 98
[2024-03-19 14:20] VITALS: BP 137/81; TEMP 98; O2SAT 100
[2024-03-19 14:21] VITALS: BP 137/81; TEMP 98; O2SAT 100
[2024-03-19] MEDS: chlorproMAZINE INJ 50MG/2ML AMP IM STA (14:29)
[2024-03-19] MEDS: ACETAMINOPHEN TAB 650MG DOSE (2X325MG) PO PRN (19:57)
[2024-03-20 06:19] VITALS: BP 134/71; TEMP 97.6; O2SAT 99
[2024-03-20] MEDS: DIVALPROEX 500MG *ER* TAB PO SCH (08:04)
[2024-03-20] MEDS: NICOTINE 21MG/24HR 1 EA TRANSDERMAL TD SCH (09:33)
[2024-03-20 20:00] VITALS: BP 126/82; TEMP 97.5; O2SAT 98
[2024-03-21 06:08] VITALS: BP 121/75; TEMP 97.3; O2SAT 100
[2024-03-21 16:57] VITALS: BP 140/72; TEMP 98.5; O2SAT 99
[2024-03-22 06:20] VITALS: BP 108/58; TEMP 97.8; O2SAT 97
[2024-03-22] MEDS: OLANZapine ORAL DISINTEGRATING TAB 5MG PO ONE (06:33)
[2024-03-22] MEDS: LORazepam 1 MG TAB PO ONE (10:57)
[2024-03-22 17:11] VITALS: BP 129/75; TEMP 98.2; O2SAT 98
[2024-03-23 06:18] VITALS: BP 129/60; TEMP 98.1; O2SAT 96
[2024-03-23 17:08] VITALS: BP 118/75; TEMP 97.9; O2SAT 100
[2024-03-24 06:20] VITALS: BP 141/68; TEMP 97.8; O2SAT 100
[2024-03-24 18:00] VITALS: BP 125/79; TEMP 96.9; O2SAT 99
[2024-03-24] MEDS: HALOPERIDOL DECANOATE 100 MG/ML 1ML VIAL IM ONE (18:07)
[2024-03-25 06:34] VITALS: BP 105/60; TEMP 98; O2SAT 96
[2024-03-25 18:55] VITALS: BP 144/87; TEMP 97.9
[2024-03-26 06:26] VITALS: BP 106/55; TEMP 97.9; O2SAT 100
[2024-03-26 17:45] VITALS: BP 131/52; TEMP 97.3; O2SAT 100
[2024-03-27 06:03] VITALS: BP 132/68; TEMP 98.1; O2SAT 98
[2024-03-27] MEDS ORDERED: DEPA500T2 PO (08:49)
[2024-03-27] MEDS ORDERED: HALO10TA20 PO ×2 (08:49→17:00)
[2024-03-27] MEDS ORDERED: TRAZ-257 PO ×2 (08:49→17:00)
[2024-03-27] MEDS ORDERED: HALD100I2 IM (09:01)
[2024-03-27] MEDS ORDERED: DEPA1TAB3 PO (17:00)
== END 2024-03-27 11:32 | disposition home or self-care (01) | DRG 885 ==
LOC: M ED 23:38 → M ED INP 03-17 11:43 → M PSY 03-17 14:51
PROVIDERS: ADMIT Psychiatry & Neurology Child & Adolescent Psychiatry; ATTEND Psychiatry & Neurology Child & Adolescent Psychiatry
DX: F31.89 Other bipolar disorder (principal); F43.10 Post-traumatic stress disorder, unspecified; F12.10 Cannabis abuse, uncomplicated; F10.90 Alcohol use, unspecified, uncomplicated; Z79.899 Other long term (current) drug therapy; Z11.52 Encounter for screening for COVID-19; Z78.1 Physical restraint status

== ENCOUNTER → 2025-01-02 | Outpatient (CLI) | payer OTHER ==
[~2025-01-02] MED LIST changes: -ARIP10TA32 PO; +ARIP10TA63 PO; +ARIP1TAB4 PO; -ARIP1TAB44 PO; +ARIP30TA38 PO; +DEPA500T2 PO; +HALD100I2 IM; +HALO10TA20 PO; +MULTTAB61 PO; +TRAZ-257 PO
[2025-01-02 17:29] LABS: HEMATOCRIT 40.3 % (36.0-47.0); HEMOGLOBIN 13.1 g/dl (12.0-15.5); MEAN CORPUSCULAR HEMOGLOBIN 30.7 pg (27.0-33.0); MEAN CORPUSCULAR HGB CONC 32.5 g/dl (32.0-36.5); MEAN CORPUSCULAR VOLUME 94.4 fl (80.0-96.0); PLATELET COUNT, AUTOMATED 307 10^3/uL (150-450); RED BLOOD COUNT 4.27 10^6/uL (4.00-5.40); WHITE BLOOD COUNT 13.2 10^3/uL (4.0-10.0)
[2025-01-02 18:34] LABS: HIV 1&2 SCREEN NEGATIVE (NEGATIVE)
[2025-01-02 18:42] LABS: HEPATITIS C VIRUS ABY INDEX 0.04 INDEX (<0.8)
== END ==
LOC: M PLALAB 14:48
PROVIDERS: ATTEND Nurse Practitioner Family
DX: Z34.80 Encounter for supervision of other normal pregnancy, unspecified trimester (principal)

== ENCOUNTER → 2025-01-02 | Outpatient (REF) | payer OTHER ==
[2025-01-02 17:37] LABS: GC DNA AMPLIFICATION NEGATIVE (NEGATIVE)
[2025-01-04 16:02] LABS: Trichomonas vaginalis (AMP) NOT DETECTED (NEGATIVE)
== END ==
LOC: M PLALAB 13:59
PROVIDERS: ATTEND Nurse Practitioner Family
DX: Z34.80 Encounter for supervision of other normal pregnancy, unspecified trimester (principal)

== ENCOUNTER → 2025-03-12 | Outpatient (CLI) | payer OTHER, SELFPAY | LOC: M WHC 08:13 | PROVIDERS: ATTEND Advanced Practice Midwife | DX: Z34.02 Encounter for supervision of normal first pregnancy, second trimester (principal); Z3A.22 22 weeks gestation of pregnancy ==

== ENCOUNTER → 2025-04-18 | Outpatient (CLI) | payer OTHER ==
[2025-04-18 11:11] LABS: PLATELET COUNT, AUTOMATED 234 10^3/uL (150-450)
[2025-04-18 11:43] LABS: GLUCOSE CHALLENGE TEST 1 HOUR 63 MG/DL (LESS THAN 140)
[2025-04-18 12:11] LABS: HIV 1&2 SCREEN NEGATIVE (NEGATIVE)
[2025-04-18 12:19] LABS: HEPATITIS C VIRUS ABY INDEX < 0.02 INDEX (<0.8)
[2025-04-18 19:18] LABS: Trichomonas vaginalis (AMP) NOT DETECTED (NEGATIVE)
[2025-04-18 19:42] LABS: GC DNA AMPLIFICATION NEGATIVE (NEGATIVE)
== END ==
LOC: M PLALAB 08:23
PROVIDERS: ATTEND Obstetrics & Gynecology
DX: Z34.92 Encounter for supervision of normal pregnancy, unspecified, second trimester (principal)

== ENCOUNTER 2025-05-14 06:11 | Emergency (ER) | payer OTHER ==
[~2025-05-14] VITALS: Ht 157.5 cm; Wt 83.2 kg
[2025-05-14 06:14] VITALS: BP 128/79; TEMP 98.6; O2SAT 99
[2025-05-14] MEDS ORDERED: MULTTAB20 PO (06:23)
[2025-05-14 06:58] LABS: BASO # 0.0 10^3/uL (0.0-0.2); BASO % 0.4 % (0.0-1.0); EOS # 0.4 10^3/uL (0.0-0.5); EOS % 3.6 % (0.0-3.0); LYMPH # 1.9 10^3/uL (1.5-5.0); LYMPH % 18.3 % (24.0-44.0); MONO # 0.8 10^3/uL (0.0-0.8); MONO % 7.4 % (2.0-8.0); NEUTROPHILS # 7.3 10^3/uL (1.5-8.5); NEUTROPHILS % 69.9 % (36.0-66.0); PLATELET COUNT, AUTOMATED 294 10^3/uL (150-450)
[2025-05-14 07:32] LABS: CK-MB VALUE MASS 1.5 NG/ML (<3.6)
[2025-05-14 07:34] LABS: CALCIUM LEVEL 7.8 MG/DL (8.5-10.1); CARBON DIOXIDE LEVEL 21 MMOL/L (20-31); CHLORIDE LEVEL 106 MMOL/L (98-107); CPK CREATINE PHOSPHOKINASE 82 U/L (34-145); CREATININE FOR GFR 0.51 MG/DL (0.55-1.30); GLOMERULAR FILTRATION RATE > 90.0 (>60); MB/CK RELATIVE INDEX 1.82 (< OR =4); POTASSIUM SERUM 3.8 MMOL/L (3.5-5.1); SODIUM LEVEL 139 MMOL/L (136-145)
[2025-05-14 09:14] LABS: CK-MB VALUE MASS 1.5 NG/ML (<3.6)
[2025-05-14 09:15] LABS: CPK CREATINE PHOSPHOKINASE 76 U/L (34-145); MB/CK RELATIVE INDEX 1.97 (< OR =4)
== END 2025-05-14 10:57 | disposition home or self-care (01) ==
LOC: M ED 06:11
DX: O26.893 Other specified pregnancy related conditions, third trimester (principal); R07.9 Chest pain, unspecified; Z3A.31 31 weeks gestation of pregnancy; O99.343 Other mental disorders complicating pregnancy, third trimester; F43.10 Post-traumatic stress disorder, unspecified; F31.9 Bipolar disorder, unspecified; F90.9 Attention-deficit hyperactivity disorder, unspecified type; Z86.19 Personal history of other infectious and parasitic diseases
CPT/HCPCS: 59025; 71045; 80048; 82550; 82553; 84484; 85025; 93005; 99284; G0463

== ENCOUNTER → 2025-05-16 | Outpatient (REF) | payer OTHER ==
[~2025-05-16] MED LIST changes: +MULTTAB20 PO
[2025-05-16 16:00] LABS: AMPHETAMINES LEVEL URINE NEGATIVE (NEGATIVE); BARBITURATES URINE NEGATIVE (NEGATIVE); BENZODIAZEPINES URINE NEGATIVE (NEGATIVE); CANNABINOIDS URINE NEGATIVE (NEGATIVE); COCAINE METABOLITE URINE NEGATIVE (NEGATIVE); METHADONE URINE NEGATIVE (NEGATIVE); OPIATES URINE NEGATIVE (NEGATIVE); PHENCYCLIDINE URINE NEGATIVE (NEGATIVE)
== END ==
LOC: M SFHCWAGY 15:04
PROVIDERS: ATTEND Obstetrics & Gynecology
DX: F19.11 Other psychoactive substance abuse, in remission (principal)

== ENCOUNTER → 2025-06-15 | Outpatient (REF) | payer OTHER | LOC: M SFHCWAGY 10:21 | PROVIDERS: ATTEND Obstetrics & Gynecology | DX: Z34.93 Encounter for supervision of normal pregnancy, unspecified, third trimester (principal) ==